=== PATIENT | female | born 1995 | race Caucasian/White ===

== ENCOUNTER 2020-03-13 19:11 | Emergency (ER) | payer MEDICAID, SELFPAY ==
[2020-03-13 19:48] VITALS: BP 143/76; PULSE 83; RESP 16; TEMP 36.8; O2SAT 100; BMI 24.9
--- NOTE | 2020-03-13 20:13 | ED.ABDPAIN ---
HPI - Abdominal Pain General Chief Complaint: Abdominal Pain Stated Complaint: Abdominal Pain Time Seen by Provider: 03/13/20 19:52 Source: patient Mode of arrival: ambulatory History of Present Illness HPI narrative: 24-year-old female with a PMHx of anemia, , presenting to ED complaining of intermittent nonradiating lower abdominal pain x a few days. Patient tested positive for COVID-19 about 1 month ago, has been in quarantine since due to testing positive again after 14 days of quarantine. Reports lower abdominal pain during COVID like symptoms, which improved, but are still slightly present, and wants to get checked out. Denies radiation of pain. Denies nausea/vomiting, diarrhea, fever, chills, dysuria/hematuria, vaginal bleeding/discharge MD elicited complaint: abdominal pain Related Data Allergies Allergy/AdvReac Type Severity Reaction Status Date / Time No Known Allergies Allergy Unverified 01/15/20 16:27 [No Known Allergies*] Review of Systems Review of Systems Constitutional: No Weight loss, No Fever, No Chills ENT/Mouth: No Ear Pain, No Nasal Congestion, No Sinus Pain, No Hoarseness, No sore throat, No Rhinorrhea, No Swallowing Difficulty Cardiovascular: No Chest Pain, No SOB Respiratory: No Cough, No Sputum, No Wheezing Gastrointestinal: No Nausea, No Vomiting, No Diarrhea, No Constipation, + Abdominal pain Genitourinary: No Dysuria, No Urinary Frequency, No Hematuria, No Urinary Incontinence, No Flank Pain, no vaginal bleeding or discharge Musculoskeletal: No joint pain, No Myalgias, No Joint Swelling Skin: No Skin Lesions, No rash Yes all other systems are reviewed and are negative Physical Exam Vital Signs: Vital Signs: Last Vital Signs Temp 97.4 F 03/13/20 21:14 Pulse 85 03/13/20 21:14 Resp 20 03/13/20 21:14 BP 138/83 03/13/20 21:14 Pulse Ox 100 03/13/20 21:14 Body Mass Index 24.9 Const: General: cooperative and healthy appearing Orientation/consciousness: patient oriented x3 Limitations: no limitations HENMT: Head: Yes normal to inspection Ears: hearing grossly normal bilaterally General nose exam: Normal external nose present Face and sinus: Yes normal facial exam Eyes: General: appearance normal, both eyes and all related structures EOM: EOMs intact bilaterally Neck: Neck: Yes normal visual inspection Resp: Effort & Inspection: normal respiratory effort and no stridor GI: Inspection: Yes normal to inspection Palpation (GI): Soft to palpation, nontender, no guarding and not rigid : General: Yes no CVA tenderness Back/Spine/Pelvis: Back: no CVA tenderness Skin: Rashes: no rashes Wounds: no wounds Neuro: General: patient oriented x3 Gait exam (Neuro): Normal gait present Extrem: General: Yes normal to inspection Course Course Course Narrative: --2150--labs and UA unremarkable Results discussed with patient including worrisome signs and symptoms and strict return precautions. She verbalized understanding and feels safe for discharge home MDM - Abdominal Pain MDM Narrative Medical decision making narrative: 24-year-old female with a PMHx of anemia, , presenting to ED complaining of intermittent nonradiating lower abdominal pain x a few days. On exam VSS, NAD/well-appearing, abdomen soft/nontender, no CVAT. Concern for gastroenteritis vs ? or residual COVID-19 symptoms. Low concern for appendicitis/diverticulitis, or pancreatitis without tenderness on exam. Low concern for ovarian torsion/cyst. Rule UTI Plan: Labs, UA, urine , reassess Lab Data Result diagrams: 03/13/20 20:51 03/13/20 20:51 Labs: Lab Results 03/13/20 03/13/20 03/13/20 Range/Units 20:51 20:51 20:51 WBC 6.6 (4.8-10.8) X10*3/uL RBC 4.45 (4.20-5.50) X10*6/uL Hgb 13.2 (12.0-16.0) g/dl Hct 39.5 (37-47) % MCV 88.8 (80-98) fL MCH 29.7 (27.0-33.0) pg MCHC 33.4 (31.0-35.0) g/dl RDW 12.1 (11.0-16.0) % Plt Count 201 (160-400) X10*3/uL MPV 12.0 (9.4-12.3) fL Immature Gran % (Auto) 0.3 (0.0-0.4) % Neut % (Auto) 66.8 (45-73) % Lymph % (Auto) 23.4 (20-40) % [place] % (Auto) 7.9 (2-11) % Eos % (Auto) 1.1 (0-4) % Baso % (Auto) 0.5 (0-2) % Lymph # (Auto) 1.5 (1.2-4.9) X10*3/uL [place] # (Auto) 0.5 (0.1-1.2) X10*3/uL Eos # (Auto) 0.1 (0.0-0.4) X10*3/uL Baso # (Auto) 0.0 (0.0-0.2) X10*3/uL Abs Immat Gran (auto) 0.02 (0.00-0.03) X10*3/uL Absolute Neuts (auto) 4.4 (2.0-8.3) X10*3/uL Absolute Nucleated RBC 0.000 (0.0-0.012) X10*3/uL Nucleated RBC % (auto) 0.0 (0.0-0.2) /100WBC Hold Blue Top SEE NOTE Sodium 142 (135-145) mmol/L Potassium 3.8 (3.3-5.1) mmol/l Chloride 107 (96-108) mmol/L Carbon Dioxide 26 (22-29) mmol/L Anion Gap 13 (12-20) BUN 10 (9-16) mg/dL Creatinine 0.73 (0.5-1.4) mg/dL Estim Creat Clear Calc 97.0 Estimated GFR > 60 Random Glucose 95 (60-115) mg/dL Calcium 9.1 (8.4-10.2) mg/dL Magnesium 1.9 (1.6-2.6) mg/dL Total Bilirubin 1.1 H (0.0-1.0) mg/dL Direct Bilirubin 0.4 (0.0-0.5) mg/dL AST 19 (5-31) U/L ALT 14 (0-31) U/L Alkaline Phosphatase 101 (39-117) U/L Total Protein 7.9 (6.5-8.0) g/dL Albumin 4.8 (3.5-5.0) g/dL Lipase 13 (8-78) U/L Urine Color Urine Appearance Urine pH (5.0-8.0) Ur Specific [place] (1.005-1.025) Urine Protein (NEG-TRACE) MG/DL Urine Glucose (UA) (NEG) MG/DL Urine Ketones (NEG) MG/DL Urine Blood (NEG) Urine Nitrite (NEG) Ur Leukocyte Esterase (NEG) Urine Test (NEGATIVE) 03/13/20 Range/Units 21:20 WBC (4.8-10.8) X10*3/uL RBC (4.20-5.50) X10*6/uL Hgb (12.0-16.0) g/dl Hct (37-47) % MCV (80-98) fL MCH (27.0-33.0) pg MCHC (31.0-35.0) g/dl RDW (11.0-16.0) % Plt Count (160-400) X10*3/uL MPV (9.4-12.3) fL Immature Gran % (Auto) (0.0-0.4) % Neut % (Auto) (45-73) % Lymph % (Auto) (20-40) % [place] % (Auto) (2-11) % Eos % (Auto) (0-4) % Baso % (Auto) (0-2) % Lymph # (Auto) (1.2-4.9) X10*3/uL [place] # (Auto) (0.1-1.2) X10*3/uL Eos # (Auto) (0.0-0.4) X10*3/uL Baso # (Auto) (0.0-0.2) X10*3/uL Abs Immat Gran (auto) (0.00-0.03) X10*3/uL Absolute Neuts (auto) (2.0-8.3) X10*3/uL Absolute Nucleated RBC (0.0-0.012) X10*3/uL Nucleated RBC % (auto) (0.0-0.2) /100WBC Hold Blue Top Sodium (135-145) mmol/L Potassium (3.3-5.1) mmol/l Chloride (96-108) mmol/L Carbon Dioxide (22-29) mmol/L Anion Gap (12-20) BUN (9-16) mg/dL Creatinine (0.5-1.4) mg/dL Estim Creat Clear Calc Estimated GFR Random Glucose (60-115) mg/dL Calcium (8.4-10.2) mg/dL Magnesium (1.6-2.6) mg/dL Total Bilirubin (0.0-1.0) mg/dL Direct Bilirubin (0.0-0.5) mg/dL AST (5-31) U/L ALT (0-31) U/L Alkaline Phosphatase (39-117) U/L Total Protein (6.5-8.0) g/dL Albumin (3.5-5.0) g/dL Lipase (8-78) U/L Urine Color YELLOW Urine Appearance CLEAR Urine pH 6.0 (5.0-8.0) Ur Specific [place] 1.025 (1.005-1.025) Urine Protein NEG (NEG-TRACE) MG/DL Urine Glucose (UA) NEG (NEG) MG/DL Urine Ketones NEG (NEG) MG/DL Urine Blood 1+ H (NEG) Urine Nitrite NEG (NEG) Ur Leukocyte Esterase NEG (NEG) Urine Test NEGATIVE (NEGATIVE) Discharge Plan Discharge Clinical Impression: Abdominal pain Patient Disposition: Home, Self-Care Instructions: Abdominal Pain (ED) Additional Instructions: Your blood work and urine were reassuring today in the ED Make sure stay hydrated at home Follow-up with her doctor If your pain persists or worsens, becomes more,, you have fever, vaginal bleeding or discharge, urinary symptoms, or nausea or vomiting return to the ED Referrals: Physician,Unknown [Primary Care Provider] - 2 days (Your PCP) [facility] Past Medical History Attestation statement: The following information was validated with the patient. Medical History (Updated 03/13/20 @ 20:19 by LUIS Enriquez) Anemia Social History Social History Advance Directives: No Advance Directives Information Provided: No
[2020-03-13 20:56] LABS: MANUAL DIFF FLAG NO
[2020-03-13 20:59] LABS: Basophils Percent Auto 0.5 % (0-2); Eosinophils Absolute Auto 0.1 X10*3/uL (0.0-0.4); Eosinophils Percent Auto 1.1 % (0-4); Hematocrit 39.5 % (37-47); Hemoglobin 13.2 g/dl (12.0-16.0); Imm Gran Abs Auto 0.02 X10*3/uL (0.00-0.03); Imm Gran Pct Auto 0.3 % (0.0-0.4); Lymphocytes Absolute Auto 1.5 X10*3/uL (1.2-4.9); Lymphocytes Percent Auto 23.4 % (20-40); Mean Corpuscular HGB Conc 33.4 g/dl (31.0-35.0); Mean Corpuscular Hemoglobin 29.7 pg (27.0-33.0); Mean Corpuscular Volume 88.8 fL (80-98); Monocytes Absolute Auto 0.5 X10*3/uL (0.1-1.2); Monocytes Percent Auto 7.9 % (2-11); Neutrophils Absolute Auto 4.4 X10*3/uL (2.0-8.3); Neutrophils Percent Auto 66.8 % (45-73); Platelet Count 201 X10*3/uL (160-400); Red Blood Count 4.45 X10*6/uL (4.20-5.50); Red Cell Distribution Width 12.1 % (11.0-16.0); White Blood Count 6.6 X10*3/uL (4.8-10.8)
[2020-03-13 21:14] VITALS: BP 138/83; PULSE 85; RESP 20; TEMP 36.3; O2SAT 100
[2020-03-13 21:29] LABS: Alanine Aminotransferase 14 U/L (0-31); Albumin Level 4.8 g/dL (3.5-5.0); Alkaline Phosphatase 101 U/L (39-117); Anion Gap 13 (12-20); Aspartate Amino Transferase 19 U/L (5-31); Bilirubin Direct 0.4 mg/dL (0.0-0.5); Bilirubin Total 1.1 mg/dL (0.0-1.0); Blood Urea Nitrogen 10 mg/dL (9-16); Calcium 9.1 mg/dL (8.4-10.2); Carbon Dioxide 26 mmol/L (22-29); Chloride 107 mmol/L (96-108); Estimated Glomerular Filt Rate > 60; Glucose Random 95 mg/dL (60-115); Lipase 13 U/L (8-78); Magnesium 1.9 mg/dL (1.6-2.6); Potassium 3.8 mmol/l (3.3-5.1); Sodium 142 mmol/L (135-145); Total Protein 7.9 g/dL (6.5-8.0)
[2020-03-13 21:34] LABS: Glucose Urine UA NEG (NEG); Leukocyte Esterase Urine NEG (NEG); Nitrite Urine NEG (NEG); Specific Gravity - Urine 1.025 (1.005-1.025); Urine Blood 1+ (NEG); Urine Ketones NEG (NEG); Urine Protein NEG (NEG-TRACE)
[2020-03-13 21:37] LABS: Appearance Urine CLEAR; Color Urine YELLOW
[2020-03-13 21:39] LABS: UPreg QC Valid YES; Urine Pregnancy NEGATIVE (NEGATIVE)
[2020-03-13 22:07] LABS: Bacteria Urine TRACE /LPF; RBC Urine 0-2 /HPF (0); Squamous Epithelial Cell Urine TRACE /LPF; WBC Urine 0 /HPF (0-4)
== END 2020-03-13 22:25 | disposition home or self-care (01) ==
PROVIDERS: Physician Assistant; Emergency Provider Student in an Organized Health Care Education/Training Program
DX: R10.9 Unspecified abdominal pain (principal); Z20.828 Contact with and (suspected) exposure to other viral communicable diseases; Z86.19 Personal history of other infectious and parasitic diseases
CPT/HCPCS: 36415; 80048; 80076; 81001; 81025; 83690; 83735; 85025; 99283; 99284

== ENCOUNTER 2020-05-04 17:26 | Emergency (ER) | payer MEDICAID, SELFPAY ==
[2020-05-04 17:35] VITALS: BP 148/76; PULSE 80; RESP 18; TEMP 37.1; O2SAT 98; BMI 24.9
[2020-05-04 18:45] LABS: Glucose Urine UA NEG (NEG); Leukocyte Esterase Urine NEG (NEG); Nitrite Urine NEG (NEG); Specific Gravity - Urine >= 1.030 (1.005-1.025); Urine Blood 1+ (NEG); Urine Ketones NEG (NEG); Urine Protein NEG (NEG-TRACE)
[2020-05-04 18:51] LABS: Appearance Urine CLEAR; Color Urine YELLOW
[2020-05-04 18:52] LABS: UPreg QC Valid YES; Urine Pregnancy POSITIVE (NEGATIVE)
[2020-05-04 18:58] LABS: Squamous Epithelial Cell Urine 1+ /LPF
[2020-05-04 18:59] LABS: Bacteria Urine 2+ /LPF; Mucus Urine 2+ /LPF
[2020-05-04 20:00] VITALS: BP 146/78; PULSE 80; RESP 18; O2SAT 98
--- NOTE | 2020-05-04 21:05 | US_ITS ---
EXAMINATION: ULTRASOUND PELVIC, COMPLETE CLINICAL INFORMATION: Vaginal spotting. . Beta-hCG 372 on 05/04/2020 COMPARISON: None. TECHNIQUE: Transvaginal: Used to better visualize pelvic structures Transabdominal: Not adequate for visualization. Spectral Doppler and color Doppler exam was utilized. LMP: 03/28/2020. Gestational age by LMP is 5 weeks 2 days. JOB 01/02/2021 FINDINGS: UTERUS: In the fundus of the uterus within the endometrial cavity is a small cystic area measuring 0.33 cm. This is likely a gestational sac. This correlates with dating of 4 weeks 6 days. No pole or yolk sac. Endometrial thickness is 2.2 cm. ADNEXA: Ovarian vascularity:Doppler demonstrates both arterial and venous vascular flow in the right and left ovary. No evidence of ovarian torsion. Right Ovary: 4 x 2.3 x 3.2 cm. Corpus luteum cyst in the right ovary measures 2.1 x 1.6 x 1.4 cm Left Ovary: 2 x 1.9 x 1.7 cm Cul-de-sac: No Fluid US/US OB transvaginal IMPRESSION: 1. Small intrauterine gestational sac measuring 0.33 cm. This is consistent with gestational age of 4 weeks 6 days, JOB 01/02/2021. Consider follow-up pelvic ultrasound in 2-3 weeks. 2. Corpus luteum cyst in the right ovary measuring 2.1 cm.
--- NOTE | 2020-05-04 21:05 | US_ITS ---
EXAMINATION: ULTRASOUND PELVIC, COMPLETE CLINICAL INFORMATION: Vaginal spotting. . Beta-hCG 372 on 05/04/2020 COMPARISON: None. TECHNIQUE: Transvaginal: Used to better visualize pelvic structures Transabdominal: Not adequate for visualization. Spectral Doppler and color Doppler exam was utilized. LMP: 03/28/2020. Gestational age by LMP is 5 weeks 2 days. JOB 01/02/2021 FINDINGS: UTERUS: In the fundus of the uterus within the endometrial cavity is a small cystic area measuring 0.33 cm. This is likely a gestational sac. This correlates with dating of 4 weeks 6 days. No pole or yolk sac. Endometrial thickness is 2.2 cm. ADNEXA: Ovarian vascularity:Doppler demonstrates both arterial and venous vascular flow in the right and left ovary. No evidence of ovarian torsion. Right Ovary: 4 x 2.3 x 3.2 cm. Corpus luteum cyst in the right ovary measures 2.1 x 1.6 x 1.4 cm Left Ovary: 2 x 1.9 x 1.7 cm Cul-de-sac: No Fluid US/US OB <= 14 weeks fetus IMPRESSION: 1. Small intrauterine gestational sac measuring 0.33 cm. This is consistent with gestational age of 4 weeks 6 days, JOB 01/02/2021. Consider follow-up pelvic ultrasound in 2-3 weeks. 2. Corpus luteum cyst in the right ovary measuring 2.1 cm.
--- NOTE | 2020-05-04 21:08 | ED_ITS ---
HPI - General Chief complaint: Vaginal Bleeding Stated complaint: positive with pelvic pain Time Seen by Provider: 05/04/20 21:05 Source: patient Mode of arrival: ambulatory History of Present Illness HPI Narrative: This is a 24-year-old female with LMP 03/28/2020 who states that she began having some vaginal spotting for 3 days that she thought was due to menstrual but noticed that her breasts were tender so took a home test which was positive. She states that she is having some left-sided pelvic cramping that is not associated with fevers, chills, diarrhea, nausea, vomiting, urinary pain/burning/frequency. Related Data Allergies Allergy/AdvReac Type Severity Reaction Status Date / Time No Known Allergies Allergy Verified 05/04/20 17:35 [No Known Allergies*] Review of Systems Review of Systems: Pertinent positives and negatives as stated in the HPI 10 point review of systems is otherwise negative. PMFSH Past Medical History Source: nursing notes reviewed Medical History Anemia Social History Social History Alcohol intake: never Smoking Status: Never smoker Use of substances other than those prescribed or required for medical reasons: No Advance Directives: No Advance Directives Information Provided: No Physical Exam Vital Signs: Vital Signs: Last Vital Signs Temp 98.7 F 05/04/20 17:35 Pulse 80 05/04/20 17:35 Resp 18 05/04/20 17:35 BP 148/76 H 05/04/20 17:35 Pulse Ox 98 05/04/20 17:35 Body Mass Index 24.9 VITAL SIGNS: Reviewed. GENERAL: Well developed, well nourished, in no acute distress. HEAD: Normocephalic/atraumatic, EYES: PERRLA, EOMI intact without pain, no nystagmus/pallor/icterus noted EARS: Ext canals without abnormality, TMs non-bulging and non-erythematous NOSE: Nares patent bilateral OROPHARYNX: no oral lesions noted, posterior pharynx clear and non-erythematous without noted tonsillar enlargement/erythema/exudates NECK: Supple, no adenopathy LUNGS: Normal breath sounds. No adventitious sounds or accessory muscle use. SpO2<98> CARDIOVASCULAR: Regular rate and rhythm without noted murmurs, no JVD or lower extremity edema. ABDOMEN: Soft, mild tenderness to palpation the right lower quadrant without rebound, non-distended with bowel sounds. No rigidity. No guarding. No palpable masses or hernias noted NEUROLOGIC: Alert and oriented x 4. Course Course Course Narrative: This is a 24-year-old female with history and clinical presentation consistent with most likely benign 1st trimester spotting, but will evaluate for possibility of ectopic or possible UTI, but doubt appendicitis On review of all investigations patient has a positive urine test with identification of an IUP at approximate 4 weeks 6 days. Otherwise, there are no acute findings on laboratory investigation. All results and findings were discussed with the patient at bedside and she was informed that currently she has an IUP and that although this is no guarantee she would need to continue with follow-up with her window machine operator for repeat beta-hCG and imaging studies as indicated. MDM - OB/Uterine Contractions Lab Data Result diagrams: 05/04/20 21:23 05/04/20 21:23 Labs: Lab Results 05/04/20 05/04/20 05/04/20 Range/Units 17:46 21:23 21:23 WBC 7.2 (4.8-10.8) X10*3/uL RBC 4.40 (4.20-5.50) X10*6/uL Hgb 13.2 (12.0-16.0) g/dl Hct 38.5 (37-47) % MCV 87.5 (80-98) fL MCH 30.0 (27.0-33.0) pg MCHC 34.3 (31.0-35.0) g/dl RDW 11.9 (11.0-16.0) % Plt Count 183 (160-400) X10*3/uL MPV 12.4 H (9.4-12.3) fL Immature Gran % (Auto) 0.3 (0.0-0.4) % Neut % (Auto) 66.1 (45-73) % Lymph % (Auto) 24.7 (20-40) % [place] % (Auto) 7.8 (2-11) % Eos % (Auto) 0.8 (0-4) % Baso % (Auto) 0.3 (0-2) % Lymph # (Auto) 1.8 (1.2-4.9) X10*3/uL [place] # (Auto) 0.6 (0.1-1.2) X10*3/uL Eos # (Auto) 0.1 (0.0-0.4) X10*3/uL Baso # (Auto) 0.0 (0.0-0.2) X10*3/uL Abs Immat Gran (auto) 0.02 (0.00-0.03) X10*3/uL Absolute Neuts (auto) 4.8 (2.0-8.3) X10*3/uL Absolute Nucleated RBC 0.000 (0.0-0.012) X10*3/uL Nucleated RBC % (auto) 0.0 (0.0-0.2) /100WBC Sodium 137 (135-145) mmol/L Potassium 3.8 (3.3-5.1) mmol/l Chloride 106 (96-108) mmol/L Carbon Dioxide 22 (22-29) mmol/L Anion Gap 13 (12-20) BUN 7 L (9-16) mg/dL Creatinine 0.67 (0.5-1.4) mg/dL Estim Creat Clear Calc 105.7 Estimated GFR > 60 Random Glucose 84 (60-115) mg/dL Calcium 8.5 D (8.4-10.2) mg/dL Total Bilirubin 1.3 H (0.0-1.0) mg/dL AST 14 (5-31) U/L ALT 12 (0-31) U/L Alkaline Phosphatase 94 (39-117) U/L Total Protein 7.4 (6.5-8.0) g/dL Albumin 4.5 (3.5-5.0) g/dL Beta HCG, Quant 372 mIU/mL Urine Color YELLOW Urine Appearance CLEAR Urine pH 6.0 (5.0-8.0) Ur Specific [place] >= 1.030 H (1.005-1.025) Urine Protein NEG (NEG-TRACE) MG/DL Urine Glucose (UA) NEG (NEG) MG/DL Urine Ketones NEG (NEG) MG/DL Urine Blood 1+ H (NEG) Urine Nitrite NEG (NEG) Ur Leukocyte Esterase NEG (NEG) Urine RBC 1-4 (0) /HPF Urine WBC 1-4 (0-4) /HPF Ur Squamous Epith Cells 1+ /LPF Urine Bacteria 2+ /LPF Urine Mucus 2+ /LPF Urine Test POSITIVE H (NEGATIVE) Discharge Plan Discharge Clinical Impression: Intrauterine , Threatened Patient Disposition: Home, Self-Care Instructions: (ED), Threatened Miscarriage (ED) Additional Instructions: Follow-up with your window machine operator. Please return to the emergency department should you develop any worsening symptoms. You may take [id number] Tylenol as needed for any discomfort but avoid ibuprofen/Motrin. Referrals: Physician,Unknown [Primary Care Provider] - 2 days
[2020-05-04 21:31] LABS: Basophils Percent Auto 0.3 % (0-2); Eosinophils Absolute Auto 0.1 X10*3/uL (0.0-0.4); Eosinophils Percent Auto 0.8 % (0-4); Hematocrit 38.5 % (37-47); Hemoglobin 13.2 g/dl (12.0-16.0); Imm Gran Abs Auto 0.02 X10*3/uL (0.00-0.03); Imm Gran Pct Auto 0.3 % (0.0-0.4); Lymphocytes Absolute Auto 1.8 X10*3/uL (1.2-4.9); Lymphocytes Percent Auto 24.7 % (20-40); Mean Corpuscular HGB Conc 34.3 g/dl (31.0-35.0); Mean Corpuscular Volume 87.5 fL (80-98); Mean Platelet Volume 12.4 fL (9.4-12.3); Monocytes Absolute Auto 0.6 X10*3/uL (0.1-1.2); Monocytes Percent Auto 7.8 % (2-11); Neutrophils Absolute Auto 4.8 X10*3/uL (2.0-8.3); Neutrophils Percent Auto 66.1 % (45-73); Platelet Count 183 X10*3/uL (160-400); Red Cell Distribution Width 11.9 % (11.0-16.0); White Blood Count 7.2 X10*3/uL (4.8-10.8)
[2020-05-04 21:32] LABS: MANUAL DIFF FLAG NO
--- NOTE | 2020-05-04 21:33 | PC.NURSE ---
per okay to hold off on doppler due to early .
--- NOTE | 2020-05-04 21:45 | PC.NURSE ---
HR ON HOLD DUE TO PATIENT BEING APPROXIMATLY 5 WEEKS. STATES IT WOULD BE CHALLENGING TO FIND.
[2020-05-04 21:59] LABS: Alanine Aminotransferase 12 U/L (0-31); Albumin Level 4.5 g/dL (3.5-5.0); Alkaline Phosphatase 94 U/L (39-117); Anion Gap 13 (12-20); Aspartate Amino Transferase 14 U/L (5-31); Bilirubin Total 1.3 mg/dL (0.0-1.0); Blood Urea Nitrogen 7 mg/dL (9-16); Calcium 8.5 mg/dL (8.4-10.2); Carbon Dioxide 22 mmol/L (22-29); Chloride 106 mmol/L (96-108); Creatinine Clr Calc Pharmacy 105.7; Estimated Glomerular Filt Rate > 60; Glucose Random 84 mg/dL (60-115); Potassium 3.8 mmol/l (3.3-5.1); Sodium 137 mmol/L (135-145); Total Protein 7.4 g/dL (6.5-8.0)
[2020-05-04 22:05] LABS: HCG Quantitative 372 mIU/mL
== END 2020-05-04 23:20 | disposition home or self-care (01) ==
PROVIDERS: Emergency Provider Student in an Organized Health Care Education/Training Program
DX: O20.0 Threatened abortion (principal); Z3A.01 Less than 8 weeks gestation of pregnancy
CPT/HCPCS: 36415; 76801; 76817; 80053; 81001; 81025; 84702; 85025; 99284

== ENCOUNTER → 2020-05-19 14:00 | Outpatient (BNVA) | payer MEDICAID, SELFPAY | PROVIDERS: Visit Provider Advanced Practice Midwife | DX: Z3A.01 Less than 8 weeks gestation of pregnancy (principal) | CPT/HCPCS: 99212 ==

== ENCOUNTER 2020-05-21 08:28 | Outpatient (REF) | payer MEDICAID, SELFPAY ==
--- NOTE | 2020-05-21 08:32 | US_ITS ---
EXAMINATION: US OB LESS THAN 14 WEEKS CLINICAL INFORMATION: Questionable viability and unsure dates COMPARISON: Ultrasound OB 05/04/2020 TECHNIQUE: Routine grayscale imaging of pelvis was performed. FINDINGS: There is a single live intrauterine fetus with a crown-rump length of 0.79 cm corresponding with 6 weeks and 6 days. There is visualization of distal sac, yolk sac and heart beat. The heart rate is 130 bpm. The right ovary measures 3.5 x 2.5 x 2.8 seen. There is a small anechoic corpus luteal cyst measuring 1.9 x 1.9 x 2.0. The left ovary measures 2.8 x 1.4 x 2.0 cm. US/US OB <= 14 weeks fetus IMPRESSION: 1. Single live intrauterine fetus with ultrasound age of 6 weeks and 6 days and JOB of 01/08/2021. 2. Small corpus luteal cyst right ovary. 3. The left ovary is unremarkable.
== END 2020-05-21 08:29 | disposition home or self-care (01) ==
LOC: HO.US 08:28
PROVIDERS: Visit Provider Obstetrics & Gynecology
DX: O36.80X0 Pregnancy with inconclusive fetal viability, not applicable or unspecified (principal); Z3A.01 Less than 8 weeks gestation of pregnancy
CPT/HCPCS: 76801

== ENCOUNTER → 2020-06-02 14:22 | Outpatient (BNVA) | payer MEDICAID, SELFPAY | PROVIDERS: Visit Provider Advanced Practice Midwife | DX: Z13.89 Encounter for screening for other disorder (principal) | CPT/HCPCS: 99212 ==

== ENCOUNTER 2020-06-11 14:09 | Outpatient (REF) | payer MEDICAID, SELFPAY ==
[2020-06-11 15:17] LABS: Hematocrit 36.5 % (37-47); MANUAL DIFF FLAG SCAN; Red Cell Distribution Width 12.6 % (11.0-16.0); SCAN SMEAR FLAG 1
[2020-06-11 15:19] LABS: Basophils Percent Auto 0.3 % (0-2); Eosinophils Absolute Auto 0.1 X10*3/uL (0.0-0.4); Eosinophils Percent Auto 0.9 % (0-4); Hemoglobin 12.5 g/dl (12.0-16.0); Imm Gran Abs Auto 0.04 X10*3/uL (0.00-0.03); Imm Gran Pct Auto 0.6 % (0.0-0.4); Lymphocytes Absolute Auto 1.3 X10*3/uL (1.2-4.9); Lymphocytes Percent Auto 19.9 % (20-40); Mean Corpuscular HGB Conc 34.2 g/dl (31.0-35.0); Mean Corpuscular Hemoglobin 30.3 pg (27.0-33.0); Mean Corpuscular Volume 88.4 fL (80-98); Mean Platelet Volume 12.6 fL (9.4-12.3); Monocytes Absolute Auto 0.4 X10*3/uL (0.1-1.2); Monocytes Percent Auto 6.4 % (2-11); Neutrophils Absolute Auto 4.7 X10*3/uL (2.0-8.3); Neutrophils Percent Auto 71.9 % (45-73); Platelet Count 156 X10*3/uL (160-400); Red Blood Count 4.13 X10*6/uL (4.20-5.50); White Blood Count 6.6 X10*3/uL (4.8-10.8)
[2020-06-11 15:20] LABS: PLT ABN DIST 1
[2020-06-11 15:40] LABS: SLIDE REVIEW VERIFIED
[2020-06-11 15:54] LABS: Amphetamine Screen Urine Not Detected (Not Detect); Barbiturates, Urine Not Detected (Not Detect); Benzodiazepines Screen Urine Not Detected (Not Detect); Cannabinoid Screen Urine Not Detected (Not Detect); Cocaine Screen Urine Not Detected (Not Detect); Opiate Screen Urine Not Detected (Not Detect); Phencyclidine Screen Urine Not Detected (Not Detect)
[2020-06-11 15:59] LABS: Syphilis Screen Nonreactive (Nonreactive)
[2020-06-12 05:37] LABS: Rubella IgG Antibody 2.21 Index
[2020-06-14 07:57] LABS: HIV AB/AG Nonreactive (Nonreactive); HIV Num 1 0.08 S/CO (0.00-0.99); ~Hepatitis C Antibody Nonreactive (Nonreactive)
[2020-06-14 08:28] LABS: HBsAGNum1 0.14 S/CO (0.00-0.99); Hepatitis B Surface Antigen Negative (Negative)
== END 2020-06-11 14:10 | disposition home or self-care (01) ==
LOC: HO.LAB 14:09
PROVIDERS: PCP Family Medicine; Visit Provider Obstetrics & Gynecology
DX: Z34.90 Encounter for supervision of normal pregnancy, unspecified, unspecified trimester (principal); Z3A.00 Weeks of gestation of pregnancy not specified
CPT/HCPCS: 80307; 85025; 86762; 86780; 86787; 86803; 86850; 86900; 86901; 87086; 87340; 87389

== ENCOUNTER 2020-06-22 14:59 | Outpatient (REF) | payer MEDICAID, SELFPAY ==
[2020-06-23 09:21] LABS: BV Int Neg Control Negative (Negative); BV Int Pos Control Positive (Positive)
[2020-06-23 14:52] LABS: C. trachomatis RNA TMA NOT DETECTED (NOT DETECTED); N. gonorrhoeae RNA TMA NOT DETECTED (NOT DETECTED)
== END 2020-06-22 15:00 | disposition home or self-care (01) ==
LOC: HO.LAB 14:59
PROVIDERS: PCP Family Medicine; Visit Provider Advanced Practice Midwife
DX: O99.011 Anemia complicating pregnancy, first trimester (principal); D64.9 Anemia, unspecified; O34.219 Maternal care for unspecified type scar from previous cesarean delivery; Z3A.11 11 weeks gestation of pregnancy
CPT/HCPCS: 36415; 81003; 87480; 87491; 87510; 87591; 87660; 99212

== ENCOUNTER 2020-06-22 17:10 | Outpatient (REF) | payer MEDICAID, SELFPAY ==
--- NOTE | ~2020-06-22 | US_ITS ---
EXAMINATION: US OBSTETRICAL ULTRASOUND CLINICAL INFORMATION: Encounter for supervision of normal . COMPARISON: 05/21/2020 and 05/04/2020 obstetrical ultrasound studies. LMP: 03/28/2020. Gestational age by maternal dates is 12 weeks, 2 days. Estimated date of delivery by maternal dates is 01/02/2021. TECHNIQUE: Multiple 2-D grayscale and Doppler ultrasound images of the pelvis were obtained for obstetrical examination. FINDINGS: There is a single intrauterine gestational sac with visible yolk sac, embryo/fetus, and cardiac activity. There is no significant subchorionic hemorrhage or hematoma. HR: 172 beats per minute. CRL (crown rump length): 4.85 cm, 11 weeks 5 days. JOB (estimated date of delivery): 01/06/2021 +/- 4 days. MATERNAL ADNEXA: The right maternal ovary measures 3.6 x 1.7 x 2.9 cm. The left maternal ovary was not visualized. No left adnexal abnormality. There is no significant maternal adnexal mass. No maternal pelvic ascites. US/US OB <= 14 weeks fetus IMPRESSION: 1. Single intrauterine gestation with ultrasound gestational age of 11 weeks, 5 days +/- 4 days. 2. Estimated date of delivery is 01/06/2021 +/- 4 days. 3. No maternal adnexal mass or pelvic ascites.
== END 2020-06-22 17:11 | disposition home or self-care (01) ==
LOC: HO.US 17:10
PROVIDERS: Visit Provider Advanced Practice Midwife
DX: O36.8310 Maternal care for abnormalities of the fetal heart rate or rhythm, first trimester, not applicable or unspecified (principal); Z3A.12 12 weeks gestation of pregnancy
CPT/HCPCS: 76801

== ENCOUNTER 2020-07-15 09:35 | Outpatient (REF) | payer MEDICAID, SELFPAY ==
[2020-07-16 09:25] LABS: BV Int Neg Control Negative (Negative); BV Int Pos Control Positive (Positive)
== END 2020-07-15 09:36 | disposition home or self-care (01) ==
LOC: HO.LAB 09:35
PROVIDERS: PCP Family Medicine; Visit Provider Advanced Practice Midwife
DX: O26.892 Other specified pregnancy related conditions, second trimester (principal); N76.0 Acute vaginitis; O99.012 Anemia complicating pregnancy, second trimester; D64.9 Anemia, unspecified; O34.219 Maternal care for unspecified type scar from previous cesarean delivery; Z3A.14 14 weeks gestation of pregnancy
CPT/HCPCS: 81003; 87480; 87510; 87660; 99212

== ENCOUNTER → 2020-07-20 14:44 | Outpatient (BNVA) | payer MEDICAID, SELFPAY | PROVIDERS: PCP Family Medicine; Visit Provider Obstetrics & Gynecology | DX: Z3A.15 15 weeks gestation of pregnancy (principal) | CPT/HCPCS: 99212 ==

== ENCOUNTER 2020-08-13 10:55 | Outpatient (REF) | payer MEDICAID, SELFPAY ==
--- NOTE | ~2020-08-13 | US_ITS ---
EXAMINATION: US OBSTETRICAL CLINICAL INFORMATION: 25-year-old at 18.6 days of gestation Suspected anomaly COMPARISON: 06/22/2020 TECHNIQUE: Real-time transabdominal ultrasound was performed using C1-5 megahertz transducer. FINDINGS: A single, active, fetus is seen in vertex presentation. The placenta is posterior without previa, and the amniotic fluid volume is wnl. MEASUREMENTS: 1. Biparietal Diameter: 4.3 cm; 19.0 wks 2. Occipital Frontal Diameter: 5.3 cm 3. Head Circumference: 15.8 cm; 18.5 wks 4. Abdominal Circumference: 12.9 cm; 18.3 wks 5. Femur Length: 3.1 cm; 19.4 wks 6. Humerus Length: 2.8 cm; 19.0 wks 7. Tibia Length: 2.6 cm; 19.1 wks 8. Ulna Length: 2.7 cm; 20.1 wks 9. Lateral ventricle: 0.58 cm 10. Cerebellum: 1.87 cm; 19.3 wks 11. Cisterna Magna: 0.3 cm 12. Nuchal Fold: 2.8 mm 13. Heart Rate: 140 beats per minute Rt ovary: normal Lt ovary: normal Cervical length 3.8 cm on T/A. GESTATIONAL AGE: 1. Established GA: 18.6 wks 2. GA from [facility]: 19.0 wks ESTIMATED DATE OF DELIVERY: 1. Established JOB: 01/08/2021 2. JOB from [facility]: 01/07/2021 ANATOMY: The visualized anatomy includes but not limited to: 1. Cranium: Normal 2. Intracranial anatomy: cavum septum pellucidi, lateral ventricles, choroid plexus, cerebellum, posterior fossa, third and fourth ventricles. 3. face: orbits, lip/palate, profile, nasal bone 4. Heart: four-chamber view of the heart, ventricular septum, foramen ovale, pulmonary vein, left and right outflow tracts, three-vessel view, 3 vessel trachea view, aortic and ductal arches, situs.. 5. Diaphragm: Normal 6. Abdominal wall: Normal 7. Cord Insertion: Normal 8. Spine: Cervical, thoracic, lumbar, sacral. 9. Stomach: Normal size and shape 10. Right Kidney: Pyelectasis, renal pelvis measured 5 mm 11. Left Kidney: Pyelectasis, 4 mm 12. 3 vessel cord: Normal 13. Upper extremity: Open hands, fifth digit. 14. Lower extremity: Tibia, fibula, bilateral feet. 15. Bladder: Normal 16. Genitalia: Male, patient aware US/US OB /maternal detail IMPRESSION: 1. Single, living, intrauterine with appropriate biometry. 2. Bilateral pyelectasis. Remainder of the survey was within normal limits. DISCUSSION: I reviewed today's ultrasound findings. The findings on today's examination was the suggestive of bilateral UPJ reflux. I reassured the patient that this is a benign condition that will most likely resolve spontaneously. I briefly discussed the approximate management and prognosis. We discussed the limitations of ultrasound in diagnosing aneuploidy and other congenital abnormalities. I reviewed the differences between screening test and diagnostic test. Amniocentesis was discussed and declined. She was informed that the baseline incidence of congenital abnormalities is approximately 3-5%. Not all these conditions are diagnosable in utero. RECOMMENDATIONS: Suggest a follow-up in approximately 6-8 weeks (not scheduled). Thank you for allowing me to participate in her care. Total time 30 minutes. The time spent was devoted to counseling the patient about the disease and diagnosis, coordinating care including reviewing her records, pertinent lab data and studies, as well as discussing diagnostic evaluation and workup, plan therapeutic interventions and future disposition of care. This includes any additional research needed to obtain further information in formulating the plan of care of this patient. This note was generated with a voice recognition program. Please excuse any errors which may have been overlooked during my review of this note. Sometimes these errors may affect the content or meaning of a given sentence.
== END 2020-08-13 10:56 | disposition home or self-care (01) ==
LOC: HO.US 10:55
PROVIDERS: PCP Family Medicine; Visit Provider Obstetrics & Gynecology
DX: Z34.82 Encounter for supervision of other normal pregnancy, second trimester (principal); Z36.3 Encounter for antenatal screening for malformations
CPT/HCPCS: 76811

== ENCOUNTER → 2020-08-24 14:41 | Outpatient (BNVA) | payer MEDICAID, SELFPAY | PROVIDERS: PCP Family Medicine; Visit Provider Advanced Practice Midwife | DX: Z34.92 Encounter for supervision of normal pregnancy, unspecified, second trimester (principal); Z3A.20 20 weeks gestation of pregnancy | CPT/HCPCS: 81003; 99212 ==

== ENCOUNTER → 2020-09-21 09:26 | Outpatient (BNVA) | payer MEDICAID, SELFPAY | PROVIDERS: Visit Provider Advanced Practice Midwife | DX: Z34.92 Encounter for supervision of normal pregnancy, unspecified, second trimester (principal); Z3A.24 24 weeks gestation of pregnancy | CPT/HCPCS: 81003; 99212 ==

== ENCOUNTER 2020-10-01 12:33 | Outpatient (REF) | payer MEDICAID, SELFPAY ==
--- NOTE | ~2020-10-01 | US_ITS ---
EXAMINATION: OBSTETRICAL ULTRASOUND, Follow up HISTORY: 25-year-old at the 25.6 weeks of gestation Size date discrepancy Pyelectasis COMPARISON: 08/13/2020 TECHNIQUE: Real time transabdominal imaging with color and M-mode Doppler. PRESENTATION: Vertex PLACENTA LOCATION: Posterior without previa AMNIOTIC FLUID: Deep vertical pocket the 6.1cm MEASUREMENTS: 1. Biparietal Diameter: 6.2 cm; 25.2 wks 2. Head Circumference: 23.1 cm; 25.1 wks 3. Abdominal Circumference: 21.4 cm; 26.0 wks 4. Femur Length: 4.7 cm; 5.5 wks 5. Heart Rate: 160 beats per minute WEIGHT: EFW: 844 grams (1 lbs 14 oz) -- 33 %. Left renal pelvis measured 0.53 cm consistent with pyelectasis. Ureters not seen. This is suggestive of UPJ reflux. Overall the finding is stable. The right kidney is within normal limits. BIOPHYSICAL PROFILE: Motion: 2 Tone: 2 Breathin Amniotic Fluid: 2 Total score: 8/8 GESTATIONAL AGE: 1. Established GA: 25.6 wks 2. GA from [facility]: 25.4 wks ESTIMATED DATE OF DELIVERY: 1. Established JOB: 01/08/2021 2. JOB from [facility]: 01/10/2021 US/US OB follow up IMPRESSION: 1. A single active fetus is in vertex presentation 2. Size equals dates 3. Left pyelectasis, stable I informed the patient that the renal pelvises are still mildly dilated. The ureter appears normal. Right kidney is within normal limits. Gave her reassurance. We reviewed the approximate management of UPJ reflux. A follow-up in approximately 6 weeks is scheduled. Thank you very much for this referral. Total time 30 minutes. The time spent was devoted to counseling the patient about the disease and diagnosis, coordinating care including reviewing her records, pertinent lab data and studies, as well as discussing diagnostic evaluation and workup, plan therapeutic interventions and future disposition of care. This includes any additional research needed to obtain further information in formulating the plan of care of this patient. This note was generated with a voice recognition program. Please excuse any errors which may have been overlooked during my review of this note. Sometimes these errors may affect the content or meaning of a given sentence.
== END 2020-10-01 12:34 | disposition home or self-care (01) ==
LOC: HO.US 12:33
PROVIDERS: Visit Provider Obstetrics & Gynecology
DX: O26.892 Other specified pregnancy related conditions, second trimester (principal); R93.422 Abnormal radiologic findings on diagnostic imaging of left kidney; R93.421 Abnormal radiologic findings on diagnostic imaging of right kidney; Z3A.25 25 weeks gestation of pregnancy
CPT/HCPCS: 76816

== ENCOUNTER → 2020-10-19 09:36 | Outpatient (BNVA) | payer MEDICAID, SELFPAY | PROVIDERS: Visit Provider Advanced Practice Midwife | DX: Z34.93 Encounter for supervision of normal pregnancy, unspecified, third trimester (principal); Z3A.28 28 weeks gestation of pregnancy | CPT/HCPCS: 99212 ==

== ENCOUNTER 2020-11-03 15:04 | Outpatient (REF) | payer MEDICAID, SELFPAY ==
[2020-11-03 18:19] LABS: Hematocrit 31.6 % (37-47); Hemoglobin 10.5 g/dl (12.0-16.0); Mean Corpuscular HGB Conc 33.2 g/dl (31.0-35.0); Mean Corpuscular Hemoglobin 28.7 pg (27.0-33.0); Mean Corpuscular Volume 86.3 fL (80-98); Mean Platelet Volume 12.8 fL (9.4-12.3); Platelet Count 135 X10*3/uL (160-400); Red Blood Count 3.66 X10*6/uL (4.20-5.50); Red Cell Distribution Width 12.9 % (11.0-16.0); White Blood Count 6.7 X10*3/uL (4.8-10.8)
[2020-11-03 18:28] LABS: Glucose 1 Hour PP 50gm Dose 104 mg/dL (60-140)
[2020-11-03 18:52] LABS: Syphilis Screen Nonreactive (Nonreactive)
== END 2020-11-03 15:05 | disposition home or self-care (01) ==
LOC: HO.LAB 15:04
PROVIDERS: Referring Provider Advanced Practice Midwife; Visit Provider Obstetrics & Gynecology
DX: Z34.93 Encounter for supervision of normal pregnancy, unspecified, third trimester (principal); Z3A.30 30 weeks gestation of pregnancy
CPT/HCPCS: 36415; 85027; 86780; 99212

== ENCOUNTER 2020-11-12 12:29 | Outpatient (REF) | payer MEDICAID, SELFPAY ==
--- NOTE | ~2020-11-12 | US_ITS ---
EXAMINATION: OBSTETRICAL ULTRASOUND, Follow up HISTORY: 25-year-old at 31.6 weeks of gestation Size date discrepancy pyelectasis COMPARISON: 10/01/2020 TECHNIQUE: Real time transabdominal imaging with color and M-mode Doppler. PRESENTATION: Vertex PLACENTA LOCATION: Posterior without previa AMNIOTIC FLUID: COLEEN 9.2 cm MEASUREMENTS: 1. Biparietal Diameter: 7.5 cm; 30.2 wks 2. Head Circumference: 28.8 cm; 31.5 wks 3. Abdominal Circumference: 27.5 cm; 31.4 wks 4. Femur Length: 5.9 cm; 30.5 wks 5. Heart Rate: 155 beats per minute WEIGHT: EFW: 1713 grams (3 lbs 12 oz) -- 19 %. The views of the lateral ventricles, posterior fossa, four-chamber view of the heart, stomach and urinary bladder are within normal limits. Right renal pelvis measured 2 mm and the left 5 mm. These are within normal limits. BIOPHYSICAL PROFILE: Motion: 2 Tone: 2 Breathin Amniotic Fluid: 2 Total score: 8/8 UA Doppler showed a SD ratio of 3.5. GESTATIONAL AGE: 1. Established GA: 31.6 wks 2. GA from [facility]: 31.1 wks ESTIMATED DATE OF DELIVERY: 1. Established JOB: 01/08/2021 2. JOB from [facility]: 01/13/2021 US/US OB follow up IMPRESSION: 1. A single active fetus is in vertex presentation 2. Size equals dates, compared to prior exam, there has been slightly less than expected interval growth. The EFW corresponds to 19th percentile. 3. Normal renal pelvises, bilaterally. 4. Reassuring biophysical profile and UA Doppler I reviewed today's ultrasound findings and discussed the limitations of ultrasound and estimating weights. While the EFW that corresponds to 19th percentile is within normal limits, compared to the prior exam, this represents less than expected interval growth. testing is reassuring. The renal pelvises sees are within normal limits. Recommended a repeat the growth in approximately 4 weeks (not scheduled). Thank you very much for this referral. Total time 30 minutes. The time spent was devoted to counseling the patient about the disease and diagnosis, coordinating care including reviewing her records, pertinent lab data and studies, as well as discussing diagnostic evaluation and workup, plan therapeutic interventions and future disposition of care. This includes any additional research needed to obtain further information in formulating the plan of care of this patient. This note was generated with a voice recognition program. Please excuse any errors which may have been overlooked during my review of this note. Sometimes these errors may affect the content or meaning of a given sentence.
--- NOTE | ~2020-11-12 | US_ITS ---
UA Doppler showed the SD ratio 3.5.
== END 2020-11-12 12:30 | disposition home or self-care (01) ==
LOC: HO.US 12:29
PROVIDERS: Visit Provider Obstetrics & Gynecology
DX: O35.8XX0 Maternal care for other (suspected) fetal abnormality and damage, not applicable or unspecified (principal)
CPT/HCPCS: 76816; 76820

== ENCOUNTER → 2020-11-19 10:50 | Outpatient (BNVA) | payer MEDICAID, SELFPAY | PROVIDERS: Visit Provider Advanced Practice Midwife | DX: Z34.93 Encounter for supervision of normal pregnancy, unspecified, third trimester (principal); Z3A.32 32 weeks gestation of pregnancy | CPT/HCPCS: 81003; 90471; 90715; 99212 ==

== ENCOUNTER → 2020-12-03 11:31 | Outpatient (BNVA) | payer MEDICAID, SELFPAY | PROVIDERS: Visit Provider Advanced Practice Midwife | DX: Z34.83 Encounter for supervision of other normal pregnancy, third trimester (principal); Z3A.34 34 weeks gestation of pregnancy | CPT/HCPCS: 81003; 99212 ==

== ENCOUNTER 2020-12-10 10:55 | Outpatient (REF) | payer MEDICAID, SELFPAY ==
--- NOTE | ~2020-12-10 | US_ITS ---
EXAMINATION: OBSTETRICAL ULTRASOUND, Follow up HISTORY: 25-year-old at the 35.6 weeks of gestation Pyelectasis Small for gestational age COMPARISON: 11/12/2020 TECHNIQUE: Real time transabdominal imaging with color and M-mode Doppler. 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 Biparietal Diameter: 8.0 cm; 32.2 wks 2. Head Circumference: 30.2 cm; 33.4 wks 3. Abdominal Circumference: 29.9 cm; 34.0 wks 4. Femur Length: 6.5 cm; 33.5 wks 5. Heart Rate: 156 beats per minute WEIGHT: EFW: 2238 grams (4 lbs 15 oz) -- 6 %. Right renal pelvis is measuring 0.5 cm and the left 0.7 cm. BIOPHYSICAL PROFILE: Motion: 2 Tone: 2 Breathin Amniotic Fluid: 2 Total score: 8/8 UA Doppler showed the SD ratio of 2.7. This is within normal range and stable compared to her exam. GESTATIONAL AGE: 1. Established GA: 35.6 wks 2. GA from [facility]: 33.3 wks ESTIMATED DATE OF DELIVERY: 1. Established JOB: 01/08/2021 2. JOB from [facility]: 01/25/2021 US/US OB velocimetry umbilical ar IMPRESSION: 1. A single active fetus is in vertex presentation 2. Size less than dates, EFW corresponds to 6th percentile. However compared to the exam in October, there has been appropriate interval growth. 3. Reassuring biophysical profile with normal UA SD ratio. 4. Left pyelectasis I reviewed today's ultrasound findings and informed her that the interval growth is appropriate. testing is reassuring. We discussed the limitations of ultrasound and estimating weights. She is aware that majority of the fetuses whose EFW falls below 10th percentile are constitutionally small but otherwise healthy fetuses who are growing to their full genetic potential. Unfortunately in utero, it is difficult to identify dose fetuses who are not growing to their full genetic potential due to placental insufficiency. We discussed the various indirect method of evaluating the placental function on ultrasound. So far the testing as well as umbilical cord Doppler evaluations are reassuring. The left pyelectasis persists. I informed her that this is a benign condition which will most likely resolve spontaneously later in gestation. Today's finding is most suggestive of UPJ reflux. At this point it would be reasonable to arrange for pediatric follow-up renal ultrasound at approximately 3-4 weeks of . Thank you very much for this referral. She is to start weekly testing. Total time 30 minutes. The time spent was devoted to counseling the patient about the disease and diagnosis, coordinating care including reviewing her records, pertinent lab data and studies, as well as discussing diagnostic evaluation and workup, plan therapeutic interventions and future disposition of care. This includes any additional research needed to obtain further information in formulating the plan of care of this patient. This note was generated with a voice recognition program. Please excuse any errors which may have been overlooked during my review of this note. Sometimes these errors may affect the content or meaning of a given sentence.
--- NOTE | ~2020-12-10 | US_ITS ---
EXAMINATION: OBSTETRICAL ULTRASOUND, Follow up HISTORY: 25-year-old at the 35.6 weeks of gestation Pyelectasis Small for gestational age COMPARISON: 11/12/2020 TECHNIQUE: Real time transabdominal imaging with color and M-mode Doppler. PRESENTATION: Vertex PLACENTA LOCATION: Posterior without previa AMNIOTIC FLUID: M ASL INTERPRETER 4.0 cm, COLEEN 6.6 cm MEASUREMENTS: 1. Biparietal Diameter: 8.0 cm; 32.2 wks 2. Head Circumference: 30.2 cm; 33.4 wks 3. Abdominal Circumference: 29.9 cm; 34.0 wks 4. Femur Length: 6.5 cm; 33.5 wks 5. Heart Rate: 156 beats per minute WEIGHT: EFW: 2238 grams (4 lbs 15 oz) -- 6 %. Right renal pelvis is measuring 0.5 cm and the left 0.7 cm. BIOPHYSICAL PROFILE: Motion: 2 Tone: 2 Breathin Amniotic Fluid: 2 Total score: 8/8 UA Doppler showed the SD ratio of 2.7. This is within normal range and stable compared to her exam. GESTATIONAL AGE: 1. Established GA: 35.6 wks 2. GA from [facility]: 33.3 wks ESTIMATED DATE OF DELIVERY: 1. Established JOB: 01/08/2021 2. JOB from [facility]: 01/25/2021 US/US OB follow up IMPRESSION: 1. A single active fetus is in vertex presentation 2. Size less than dates, EFW corresponds to 6th percentile. However compared to the exam in October, there has been appropriate interval growth. 3. Reassuring biophysical profile with normal UA SD ratio. 4. Left pyelectasis I reviewed today's ultrasound findings and informed her that the interval growth is appropriate. testing is reassuring. We discussed the limitations of ultrasound and estimating weights. She is aware that majority of the fetuses whose EFW falls below 10th percentile are constitutionally small but otherwise healthy fetuses who are growing to their full genetic potential. Unfortunately in utero, it is difficult to identify dose fetuses who are not growing to their full genetic potential due to placental insufficiency. We discussed the various indirect method of evaluating the placental function on ultrasound. So far the testing as well as umbilical cord Doppler evaluations are reassuring. The left pyelectasis persists. I informed her that this is a benign condition which will most likely resolve spontaneously later in gestation. Today's finding is most suggestive of UPJ reflux. At this point it would be reasonable to arrange for pediatric follow-up renal ultrasound at approximately 3-4 weeks of . Thank you very much for this referral. She is to start weekly testing. Total time 30 minutes. The time spent was devoted to counseling the patient about the disease and diagnosis, coordinating care including reviewing her records, pertinent lab data and studies, as well as discussing diagnostic evaluation and workup, plan therapeutic interventions and future disposition of care. This includes any additional research needed to obtain further information in formulating the plan of care of this patient. This note was generated with a voice recognition program. Please excuse any errors which may have been overlooked during my review of this note. Sometimes these errors may affect the content or meaning of a given sentence.
== END 2020-12-10 10:56 | disposition home or self-care (01) ==
LOC: HO.US 10:55
PROVIDERS: PCP Family Medicine; Visit Provider Obstetrics & Gynecology
DX: O35.8XX0 Maternal care for other (suspected) fetal abnormality and damage, not applicable or unspecified (principal)
CPT/HCPCS: 76816; 76820

== ENCOUNTER 2020-12-11 08:10 | Emergency (ER) | payer MEDICAID, SELFPAY ==
[2020-12-11 08:39] VITALS: BP 115/71; PULSE 79; RESP 79; TEMP 36.7; O2SAT 99; BMI 28.9
--- NOTE | 2020-12-11 09:33 | ED.GENADULT ---
HPI - General Adult General Chief complaint: General Medical Stated complaint: can get rings off finger Time Seen by Provider: 12/11/20 09:14 Source: patient Mode of arrival: ambulatory Limitations: no limitations History of Present Illness HPI narrative: Patient reports that she cannot get off 2 rings off of 2 of her fingers that have been stuck since this morning when she woke up. She reports that she attempted to remove the rings with oil and her friends tried to help her and were unsuccessful. She reports that she does not mind if they have to be cut. She denies any other symptoms complaints or concerns at this time. Related Data Previous Rx's Medication Instructions Recorded prenat.vits,fabio,aqu-kxyx-rpzbr 1 tab PO DAILY #90 tab 05/19/20 ferrous sulfate 324 mg (65 mg 324 mg PO TID #90 tab 11/04/20 iron) tablet,delayed release Allergies Allergy/AdvReac Type Severity Reaction Status Date / Time No Known Allergies Allergy Verified 11/19/20 11:00 [No Known Allergies*] Review of Systems Review of Systems: Constitutional : No Fever, No Chills, Cardiovascular : No Chest Pain, No SOB Respiratory : No Dyspnea Gastrointestinal : No abdominal pain Musculoskeletal : No Joint Swelling Skin : positive foreign bodies on fingers which are the patient's rings, No skin laceration, No Foreign bodies, No rash, No surrounding erythema Neuro : No Weakness, No Numbness/tingling Psych : No SI/HI/thoughts of self injury Yes all other systems are reviewed and are negative [facility] Past Medical History Attestation statement: The following information was validated with the patient. Medical History Anemia Surgical History History of Family History Family History Mother History of hypertension History of anxiety disorder Father No problems noted. Maternal Grandmother History of diabetes mellitus, type II Hx of primary hypertension Maternal Grandfather No problems noted. Paternal Grandmother No problems noted. Social History Social History Household Members: Significant Other and Children Alcohol intake: never Patient Tobacco Use Status: Never used Tobacco Advance Directives: No Advance Directives Information Provided: No Patient : Yes Sexual orientation: Straight/Heterosexual Gender identity: female Physical Exam Vital Signs: Vital Signs: Last Vital Signs Temp 98.1 F 12/11/20 08:39 Pulse 79 12/11/20 08:39 Resp 79 H 12/11/20 08:39 BP 115/71 12/11/20 08:39 Pulse Ox 99 12/11/20 08:39 Body Mass Index 28.9 vital signs have been reviewed as normal and appeared to be correct. Blood pressure normal. Heart rate normal. Respiration rate normal. Temperature normal. Oxygen saturation normal. Appearance: Alert. Oriented X3. No acute distress. Head: Normal external exam. Normocephalic. Atraumatic. Eyes: PERRLA. EOMI. Conjunctiva and sclera normal. Eyelids normal. ENT: Pharynx normal. Uvula midline. Moist mucous membranes. Neck: Normal inspection. Neck supple. FROM. No meningeal signs. CVS: Normal heart rate and rhythm. Back: Full range of motion noted. No rashes/lesion/induration/fluctuance or signs of infection noted. Skin: Skin warm and dry. Normal skin color. Normal skin turgor. No rashes/lesions/lacerations noted. Extremities: To white-colored rings to bilateral ring fingers with mild surrounding soft tissue swelling. No surrounding erythema. No upper or lower extremity edema. No signs of infection noted. Patient has full range of motion of all fingers and hand/wrist joint. Otherwise all other extremities Extremities exhibit normal range of motion and nontender. Neuro: Oriented X 3. No motor deficit. No sensory deficit. Reflexes normal. Normal steady gait. No focal neuro deficits noted. Vascular: + radial pulses. Normal cap refill. No cyanosis noted to upper extremity nails. Course Course Course Narrative: I was able to remove 1 of the white-colored rings with lubrication patient tolerated procedure well no complications. The 2nd ring we were unable to remove with lubrication therefore patient signed consent to remove this ring by the means of cutting it. It was cut off and patient tolerated procedure well no complications. Will DC home with instructions return if any new or worsening symptoms and to follow-up with PCP. Patient understands agrees with this plan. Medical Decision Making Medical Records Medical records reviewed: Yes I reviewed the patient's medical records. Discharge Plan Discharge Clinical Impression: Foreign body finger Patient Disposition: Home, Self-Care Instructions: Soft Tissue Foreign Body (ED) Prescriptions: No Action ferrous sulfate 324 mg (65 mg iron) tablet,delayed release (DR/EC) 324 mg PO TID Qty: 90 RF: 3 prenat.vits,fabio,mjp-vhuv-leyam Tablet 1 tab PO DAILY Qty: 90 RF: 3 Referrals: Mariella Alcantara MD [Primary Care Provider] - 2 days Print Language: Kyrgyz
== END 2020-12-11 09:44 | disposition home or self-care (01) ==
PROVIDERS: Emergency Provider Emergency Medicine; PCP Family Medicine
DX: S60.455A Superficial foreign body of left ring finger, initial encounter (principal); M79.5 Residual foreign body in soft tissue; S60.454A Superficial foreign body of right ring finger, initial encounter; X58.XXXA Exposure to other specified factors, initial encounter; Y93.9 Activity, unspecified; Y92.9 Unspecified place or not applicable; Y99.9 Unspecified external cause status
CPT/HCPCS: 99283

== ENCOUNTER → 2020-12-13 10:45 | Outpatient (BNVA) | payer MEDICAID, SELFPAY | PROVIDERS: Visit Provider Advanced Practice Midwife | DX: O36.5930 Maternal care for other known or suspected poor fetal growth, third trimester, not applicable or unspecified (principal); Z3A.36 36 weeks gestation of pregnancy | CPT/HCPCS: 59025; 81003; 99212 ==

== ENCOUNTER 2020-12-17 13:07 | Outpatient (REF) | payer MEDICAID, SELFPAY ==
--- NOTE | ~2020-12-17 | US_ITS ---
EXAMINATION: US OBSTETRICAL (BIOPHYSICAL PROFILE) CLINICAL INFORMATION: 25-year-old at the 36.6 weeks of gestation growth restriction Right pyelectasis COMPARISON: 12/10/2020 TECHNIQUE: Biophysical profile is performed over 30 minutes with assessment of breathing, gross body movement, tone, and qualitative amniotic fluid volume. FINDINGS: POSITION: Cephalic PLACENTA: Posterior without previa Maximum vertical pocket 3.0 cm CARDIAC ACTIVITY: 127 beats per minute The right renal pelvis measured 0.8 cm which is stable from prior. BIOPHYSICAL PROFILE: Motion: 2 Tone: 2 Breathin Amniotic Fluid: 2 The total biophysical score is 8/8 UA Doppler SD ratio 3.0 US/US OB follow up IMPRESSION: 1. Single intrauterine gestation in vertex position. 2. Reassuring BPP and COLEEN 3. Normal SD ratio in the UA Continue NST 2 times per week and weekly BPP with Doppler. Thank you for allowing me to participate in her care. This note was generated with a voice recognition program. Please excuse any errors which may have been overlooked during my review of this note. Sometimes these errors may affect the content or meaning of a given sentence.
--- NOTE | ~2020-12-17 | US_ITS ---
EXAMINATION: US OBSTETRICAL (BIOPHYSICAL PROFILE) CLINICAL INFORMATION: 25-year-old at the 36.6 weeks of gestation growth restriction Right pyelectasis COMPARISON: 12/10/2020 TECHNIQUE: Biophysical profile is performed over 30 minutes with assessment of breathing, gross body movement, tone, and qualitative amniotic fluid volume. FINDINGS: POSITION: Cephalic PLACENTA: Posterior without previa Maximum vertical pocket 3.0 cm CARDIAC ACTIVITY: 127 beats per minute The right renal pelvis measured 0.8 cm which is stable from prior. BIOPHYSICAL PROFILE: Motion: 2 Tone: 2 Breathin Amniotic Fluid: 2 The total biophysical score is 8/8 UA Doppler SD ratio 3.0 US/US OB velocimetry umbilical ar IMPRESSION: 1. Single intrauterine gestation in vertex position. 2. Reassuring BPP and COLEEN 3. Normal SD ratio in the UA Continue NST 2 times per week and weekly BPP with Doppler. Thank you for allowing me to participate in her care. This note was generated with a voice recognition program. Please excuse any errors which may have been overlooked during my review of this note. Sometimes these errors may affect the content or meaning of a given sentence.
== END 2020-12-17 13:08 | disposition home or self-care (01) ==
LOC: HO.US 13:07
PROVIDERS: Visit Provider Advanced Practice Midwife
DX: O35.8XX0 Maternal care for other (suspected) fetal abnormality and damage, not applicable or unspecified (principal)
CPT/HCPCS: 76816; 76820

== ENCOUNTER → 2020-12-21 14:40 | Outpatient (BNVA) | payer MEDICAID, SELFPAY | PROVIDERS: Visit Provider Advanced Practice Midwife | DX: O36.5930 Maternal care for other known or suspected poor fetal growth, third trimester, not applicable or unspecified (principal); Z3A.37 37 weeks gestation of pregnancy | CPT/HCPCS: 59025; 81003; 99212 ==

== ENCOUNTER → 2020-12-23 14:06 | Outpatient (BNVA) | payer MEDICAID, SELFPAY | PROVIDERS: Visit Provider Advanced Practice Midwife | DX: O36.5930 Maternal care for other known or suspected poor fetal growth, third trimester, not applicable or unspecified (principal); O99.013 Anemia complicating pregnancy, third trimester; O34.219 Maternal care for unspecified type scar from previous cesarean delivery; Z3A.37 37 weeks gestation of pregnancy | CPT/HCPCS: 59025; 81003; 99212 ==

== ENCOUNTER 2020-12-24 13:28 | Outpatient (REF) | payer MEDICAID, SELFPAY ==
--- NOTE | ~2020-12-24 | US_ITS ---
EXAMINATION: OBSTETRICAL ULTRASOUND, Follow up HISTORY: 25-year-old at the 37.6 weeks of gestation growth restriction Pyelectasis COMPARISON: 12/17/20 TECHNIQUE: Real time transabdominal imaging with color and M-mode Doppler. PRESENTATION: Vertex PLACENTA LOCATION: Posterior without previa AMNIOTIC FLUID: COLEEN 9.1 cm MEASUREMENTS: 1. Biparietal Diameter: 8.24 cm; 33.6 wks 2. Head Circumference: 31.0 cm; 34.5 wks 3. Abdominal Circumference: 31.0 cm; 34.6 wks 4. Femur Length: 6.9 cm; 35.2 wks 5. Heart Rate: 138 beats per minute WEIGHT: EFW: 2522 grams (5 lbs 9 oz) -- 5 %. Right renal pelvis measured 0.9 cm. The left 0.7 cm. These are consistent with the pyelectasis. The findings are suggestive of UPJ reflux. BIOPHYSICAL PROFILE: Motion: 2 Tone: 2 Breathin Amniotic Fluid: 2 Total score: 8/8 UA Doppler showed the SD ratio of 2.7 GESTATIONAL AGE: 1. Established GA: 37.6 wks 2. GA from [facility]: 34.5 wks ESTIMATED DATE OF DELIVERY: 1. Established JOB: 01/08/2021 2. JOB from [facility]: 01/30/2021 US/US OB velocimetry umbilical ar IMPRESSION: 1. A single active fetus is in vertex presentation 2. Size less than dates, EFW corresponds to 5th percentile 3. Bilateral pyelectasis. The ultrasound findings are suggestive of UPJ reflux. 4. Reassuring biophysical profile 5. Normal SD ratio in the umbilical artery I informed the patient that the EFW corresponds to 5th percentile. However the interval growth is appropriate. testing including the UA Doppler is within normal limits. pyelectasis is still present. Recommended that she range for a pediatric renal ultrasound after delivery. UPJ reflux is a benign condition that resolves spontaneously in the majority of the cases. Thank you very much for this referral. Total time 30 minutes. The time spent was devoted to counseling the patient about the disease and diagnosis, coordinating care including reviewing her records, pertinent lab data and studies, as well as discussing diagnostic evaluation and workup, plan therapeutic interventions and future disposition of care. This includes any additional research needed to obtain further information in formulating the plan of care of this patient. This note was generated with a voice recognition program. Please excuse any errors which may have been overlooked during my review of this note. Sometimes these errors may affect the content or meaning of a given sentence.
--- NOTE | ~2020-12-24 | US_ITS ---
EXAMINATION: OBSTETRICAL ULTRASOUND, Follow up HISTORY: 25-year-old at the 37.6 weeks of gestation growth restriction Pyelectasis COMPARISON: 12/17/20 TECHNIQUE: Real time transabdominal imaging with color and M-mode Doppler. PRESENTATION: Vertex PLACENTA LOCATION: Posterior without previa AMNIOTIC FLUID: COLEEN 9.1 cm MEASUREMENTS: 1. Biparietal Diameter: 8.24 cm; 33.6 wks 2. Head Circumference: 31.0 cm; 34.5 wks 3. Abdominal Circumference: 31.0 cm; 34.6 wks 4. Femur Length: 6.9 cm; 35.2 wks 5. Heart Rate: 138 beats per minute WEIGHT: EFW: 2522 grams (5 lbs 9 oz) -- 5 %. Right renal pelvis measured 0.9 cm. The left 0.7 cm. These are consistent with the pyelectasis. The findings are suggestive of UPJ reflux. BIOPHYSICAL PROFILE: Motion: 2 Tone: 2 Breathin Amniotic Fluid: 2 Total score: 8/8 UA Doppler showed the SD ratio of 2.7 GESTATIONAL AGE: 1. Established GA: 37.6 wks 2. GA from [facility]: 34.5 wks ESTIMATED DATE OF DELIVERY: 1. Established JOB: 01/08/2021 2. JOB from [facility]: 01/30/2021 US/US OB follow up IMPRESSION: 1. A single active fetus is in vertex presentation 2. Size less than dates, EFW corresponds to 5th percentile 3. Bilateral pyelectasis. The ultrasound findings are suggestive of UPJ reflux. 4. Reassuring biophysical profile 5. Normal SD ratio in the umbilical artery I informed the patient that the EFW corresponds to 5th percentile. However the interval growth is appropriate. testing including the UA Doppler is within normal limits. pyelectasis is still present. Recommended that she range for a pediatric renal ultrasound after delivery. UPJ reflux is a benign condition that resolves spontaneously in the majority of the cases. Thank you very much for this referral. Total time 30 minutes. The time spent was devoted to counseling the patient about the disease and diagnosis, coordinating care including reviewing her records, pertinent lab data and studies, as well as discussing diagnostic evaluation and workup, plan therapeutic interventions and future disposition of care. This includes any additional research needed to obtain further information in formulating the plan of care of this patient. This note was generated with a voice recognition program. Please excuse any errors which may have been overlooked during my review of this note. Sometimes these errors may affect the content or meaning of a given sentence.
== END 2020-12-24 13:29 | disposition home or self-care (01) ==
LOC: HO.US 13:28
PROVIDERS: Visit Provider Advanced Practice Midwife
DX: Z34.93 Encounter for supervision of normal pregnancy, unspecified, third trimester (principal)
CPT/HCPCS: 76816; 76820

== ENCOUNTER → 2020-12-28 14:42 | Outpatient (BNVA) | payer MEDICAID, SELFPAY | PROVIDERS: Visit Provider Obstetrics & Gynecology | DX: O36.5930 Maternal care for other known or suspected poor fetal growth, third trimester, not applicable or unspecified (principal); O99.013 Anemia complicating pregnancy, third trimester; O99.891 Other specified diseases and conditions complicating pregnancy; N13.39 Other hydronephrosis; O34.219 Maternal care for unspecified type scar from previous cesarean delivery; Z3A.38 38 weeks gestation of pregnancy | CPT/HCPCS: 59025; 99212 ==

== ENCOUNTER 2021-01-27 13:50 | Outpatient (REF) | payer MEDICAID, SELFPAY | END 2021-01-27 13:51 | disposition home or self-care (01) | LOC: HO.LAB 13:50 | PROVIDERS: PCP Family Medicine; Visit Provider Advanced Practice Midwife | DX: Z39.2 Encounter for routine postpartum follow-up (principal) | CPT/HCPCS: 88142; 99212 ==

== ENCOUNTER 2022-07-21 14:48 | Emergency (ER) | payer MEDICAID, SELFPAY ==
--- NOTE | ~2022-07-21 | US_ITS ---
EXAMINATION: US OBSTETRICAL ULTRASOUND CLINICAL INFORMATION: Positive test. Vaginal spotting. Abdominal pain. COMPARISON: None available.. LMP: 06/15/2022. Gestational age by maternal dates is 5 weeks 1 day. Estimated date of delivery by maternal dates is 03/22/2023. TECHNIQUE: Ultrasound of the maternal pelvis is performed using transabdominal and transvaginal transducers. Transvaginal imaging is performed due to inadequate visualization transabdominally. M-mode Doppler is also performed. FINDINGS: There is no intrauterine identified. Anteverted uterus. Thickened endometrium measuring 1.4 cm. No gestational sac. MATERNAL ADNEXA: The right maternal ovary measures 3.3 x 1.8 x 2.8 cm. Follicles noted. No suspicious mass or lesion. The left maternal ovary measures 3.1 x 2 x 1.9 cm. Follicles noted. No suspicious finding. There is no significant maternal adnexal mass. No maternal pelvic ascites. US/US OB <= 14 weeks fetus IMPRESSION: There is no intrauterine identified. There is thickening of the endometrium. This appearance could simply be secondary to the early stage of . No ectopic seen. Continued follow-up recommended.
[2022-07-21 14:58] VITALS: BP 129/88; PULSE 78; RESP 14; TEMP 36.1; O2SAT 100; BMI 22.8
--- NOTE | 2022-07-21 14:58 | ED.ABDPAIN ---
HPI - Abdominal Pain General Chief Complaint: Vaginal Bleeding Stated Complaint: possible miscarriage Time Seen by Provider: 07/21/22 23:55 Related Data Previous Rx's Medication Instructions Recorded prenat.vits,fabio,ahu-poak-ulidp 1 tab PO DAILY #90 tabs 05/19/20 ferrous sulfate 324 mg (65 mg 324 mg PO TID #90 tabs 11/04/20 iron) tablet,delayed release norethindrone (contraceptive) 0.35 0.35 mg PO DAILY 30 days #30 tabs 01/27/21 mg tablet (Anh) Allergies Allergy/AdvReac Type Severity Reaction Status Date / Time No Known Allergies Allergy Verified 01/27/21 14:16 [No Known Allergies*] [facility] Past Medical History Medical History Anemia Surgical History History of Family History Family History Mother History of hypertension History of anxiety disorder Father No problems noted. Maternal Grandmother History of diabetes mellitus, type II Hx of primary hypertension Maternal Grandfather No problems noted. Paternal Grandmother No problems noted. Social History Social History Household Members: Significant Other and Children Alcohol intake: never Patient Tobacco Use Status: Never used Tobacco Sexual orientation: Straight/Heterosexual Gender identity: Female Physical Exam ED Vital Signs: BMI result Body Mass Index 22.8 Course Course Course Narrative: RME--27yo F at about 5-6 weeks gestation c/o lower abdominal pain x3 days and vaginal spotting since this morning. Has not received any care yet, admits to 5+ home tests ?miscarriage vs ectopic vs Labs, UA, US ordered Medical Decision Making Lab Data 07/21/22 20:39 07/21/22 20:39 Labs: Lab Results 07/21/22 07/21/22 07/21/22 Range/Units 20:39 20:39 20:39 WBC 6.7 (4.8-10.8) X10*3/uL RBC 4.36 (4.20-5.50) X10*6/uL Hgb 13.2 (12.0-16.0) g/dl Hct 38.2 (37.0-47.0) % MCV 87.6 (80.0-98.0) fL MCH 30.3 (27.0-33.0) pg MCHC 34.6 (31.0-35.0) g/dl RDW 12.0 (11.0-16.0) % Plt Count 170 (160-400) X10*3/uL MPV 12.1 (9.4-12.3) fL Immature Gran % (Auto) 0.3 (0.0-0.4) % Neut % (Auto) 64.0 (45-73) % Lymph % (Auto) 26.8 (20-40) % [place] % (Auto) 7.4 (2-11) % Eos % (Auto) 0.9 (0-4) % Baso % (Auto) 0.6 (0-2) % Lymph # (Auto) 1.8 (1.2-4.9) X10*3/uL [place] # (Auto) 0.5 (0.1-1.2) X10*3/uL Eos # (Auto) 0.1 (0.0-0.4) X10*3/uL Baso # (Auto) 0.0 (0.0-0.2) X10*3/uL Abs Immat Gran (auto) 0.02 (0.00-0.03) X10*3/uL Absolute Neuts (auto) 4.3 (2.0-8.3) x10*3/uL Absolute Nucleated RBC 0.000 (0.0-0.012) X10*3/uL Nucleated RBC % (auto) 0.0 (0.0-0.2) /100WBC Sodium 142 (135-145) mmol/L Potassium 4.0 (3.3-5.1) mmol/L Chloride 111 H (96-108) mmol/L Carbon Dioxide 24 (22-29) mmol/L Anion Gap 11 L (12-20) BUN 8 L (9-16) mg/dL Creatinine 0.62 (0.5-1.4) mg/dL Estim Creat Clear Calc 101.0 Estimated GFR > 60 Random Glucose 75 (60-115) mg/dL Calcium 8.5 (8.4-10.2) mg/dL Magnesium 2.2 (1.6-2.6) mg/dL Total Bilirubin 1.2 H (0.0-1.0) mg/dL Direct Bilirubin 0.4 (0.0-0.5) mg/dL AST 12 (5-31) U/L ALT 6 (0-31) U/L Alkaline Phosphatase 182 H (39-117) U/L Total Protein 7.0 (6.5-8.0) g/dL Albumin 4.4 (3.5-5.0) g/dL Lipase 15 (8-78) U/L Beta HCG, Quant 3 mIU/mL Urine Color Urine Appearance Urine pH (5.0-9.0) Ur Specific [place] (1.005-1.025) Urine Protein (Neg-Trace) mg/dL Urine Glucose (UA) (Negative) mg/dL Urine Ketones (Negative) mg/dL Urine Blood (Negative) Urine Nitrite (Negative) Ur Leukocyte Esterase (Negative) Urine RBC (0-2) /HPF Urine WBC (0-5) /HPF Ur Squamous Epith Cells (0-2) /HPF Urine Bacteria (None Seen) Hyaline Casts (0-2) /LPF Blood Type O Positive 07/21/22 Range/Units 20:39 WBC (4.8-10.8) X10*3/uL RBC (4.20-5.50) X10*6/uL Hgb (12.0-16.0) g/dl Hct (37.0-47.0) % MCV (80.0-98.0) fL MCH (27.0-33.0) pg MCHC (31.0-35.0) g/dl RDW (11.0-16.0) % Plt Count (160-400) X10*3/uL MPV (9.4-12.3) fL Immature Gran % (Auto) (0.0-0.4) % Neut % (Auto) (45-73) % Lymph % (Auto) (20-40) % [place] % (Auto) (2-11) % Eos % (Auto) (0-4) % Baso % (Auto) (0-2) % Lymph # (Auto) (1.2-4.9) X10*3/uL [place] # (Auto) (0.1-1.2) X10*3/uL Eos # (Auto) (0.0-0.4) X10*3/uL Baso # (Auto) (0.0-0.2) X10*3/uL Abs Immat Gran (auto) (0.00-0.03) X10*3/uL Absolute Neuts (auto) (2.0-8.3) x10*3/uL Absolute Nucleated RBC (0.0-0.012) X10*3/uL Nucleated RBC % (auto) (0.0-0.2) /100WBC Sodium (135-145) mmol/L Potassium (3.3-5.1) mmol/L Chloride (96-108) mmol/L Carbon Dioxide (22-29) mmol/L Anion Gap (12-20) BUN (9-16) mg/dL Creatinine (0.5-1.4) mg/dL Estim Creat Clear Calc Estimated GFR Random Glucose (60-115) mg/dL Calcium (8.4-10.2) mg/dL Magnesium (1.6-2.6) mg/dL Total Bilirubin (0.0-1.0) mg/dL Direct Bilirubin (0.0-0.5) mg/dL AST (5-31) U/L ALT (0-31) U/L Alkaline Phosphatase (39-117) U/L Total Protein (6.5-8.0) g/dL Albumin (3.5-5.0) g/dL Lipase (8-78) U/L Beta HCG, Quant mIU/mL Urine Color Yellow Urine Appearance Clear Urine pH 5.5 (5.0-9.0) Ur Specific [place] >= 1.030 H (1.005-1.025) Urine Protein Negative (Neg-Trace) mg/dL Urine Glucose (UA) Negative (Negative) mg/dL Urine Ketones 15 (Negative) mg/dL Urine Blood Small (1+) H (Negative) Urine Nitrite Negative (Negative) Ur Leukocyte Esterase Negative (Negative) Urine RBC 6-10 H (0-2) /HPF Urine WBC 0-5 (0-5) /HPF Ur Squamous Epith Cells 6-10 (0-2) /HPF Urine Bacteria Trace (None Seen) Hyaline Casts 0-2 (0-2) /LPF Blood Type Discharge Plan Discharge Clinical Impression: Possible , not confirmed Patient Disposition: Home, Self-Care Instructions: Threatened Miscarriage (ED) Additional Instructions: Please return on Sunday July 24, 2022 early in the morning for blood work. If you significant abdominal pain, cramping, worsening bleeding. Please return to the emergency room. You may report straight to the lab. Please follow-up with your primary care physician tomorrow. If you have any worsening or new symptoms, please return to the emergency room or call 911 Prescriptions: No Action ferrous sulfate 324 mg (65 mg iron) tablet,delayed release (DR/EC) 324 mg PO TID Qty: 90 3RF Rx Instructions: w vit c rich juice and diet to avoid constipation prenat.vits,fabio,jke-[id number]-[id number] Tablet 1 tab PO DAILY Qty: 90 3RF norethindrone (contraceptive) [Anh] 0.35 mg tablet 0.35 mg PO DAILY 30 Days Qty: 30 11RF Referrals: Ryan Pereyra MD [Physician] - 07/25/22 Interventions: ED Discharge Assessment Last Done: 07/22/22 00:38 Discharge Date/Time: 07/22/22 00:38
[2022-07-21 20:24] VITALS: BP 118/63; PULSE 69; RESP 18; TEMP 36.4; O2SAT 100
[2022-07-21 20:43] LABS: MANUAL DIFF FLAG NO
--- NOTE | 2022-07-21 20:43 | MHC.EDTECH ---
PT BLOOD DRAWN AND URINE SAMPLE COLLECTED AND SENT TO LAB .
--- OUTSIDE RECORDS SUMMARY | 2022-07-21 20:44 | XMS_ITS | Continuity of Care Document ---
Author Name Unknown Organization [facility] Address [address] [place] [id number]- Care Team Providers Care Marketing Summer Intern Name Role Phone Paula PAYTON, Nasra Kumari Primary Care Physician ( [phone] Encounter [facility] Date(s): 06/16/20 - 07/23/[address] [address]- Attending Physician: Not on Staff, Attending MD Allergies, Adverse Reactions, Alerts Substance Reaction Severity Status NKA Active Immunizations Given and Recorded Vaccine Date Status Refusal Reason influenza virus vaccine, inactivated 01/20/13 Give n tetanus/diphtheria/pertussis, acel(Tdap) 12/16/12 Given Medications Multivitamins with Folic Acid 1 mg oral tablet 1 tablet, By Mouth, Daily, # 90 capsule, 2 Refills, Maintenance, 09/02/15 17:21:00, 1 tablet By Mouth Daily Start Date: 09/02/15 Status: Ordered Zofran 4 mg oral tablet 1 tablet = 4 mg, By Mouth, Every 8 hours, PRN Nausea & Vomiting, # 10 tablet, 0 Refills, Maintenance, Tablet Start Date: 07/12/12 Status: Ordered Problem List Condition Effective Dates Status Health Status Inform ant 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
--- OUTSIDE RECORDS SUMMARY | 2022-07-21 20:44 | XMS_ITS | Continuity of Care Document ---
Author Name Unknown Organization [facility] Address [address] [place] [address]- Care Team Providers Care Scuba Instructor Name Role Phone Nasra Mitchell MD Primary Care Physician Encounter [place] Date(s): 11/04/20 - 11/05/[address] [address] Discharge Disposition: A-D/C Home Attending Physician: Omar Araujo MD Admitting Physician: Omar Araujo MD Referring Physician: Omar Araujo MD Allergies, Adverse Reactions, Alerts Substance Reaction Severity Status NKA Active Immunizations Given and Recorded Vaccine Date Status Refusal Reason influenza virus vaccine, inactivated 01/20/13 Give n tetanus/diphtheria/pertussis, acel(Tdap) 12/16/12 Given Medications Ferrous Sulfate EC Refills 0, Maintenance, 11/04/20 21:15:00 EDT, Partial fill upon patient request if the prescription is for a schedule II opioid drug. 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 Anemia in mother complicatin g , childbirth AND/OR puerperium(Confirmed) 1 11/04/20 Active False premature labor 36.6 wk(Confirmed) Active Uterine scar from previous s urgery in , childbirth and the puerperium(Confirmed) 2 11/04/20 Active 1Problem added by Discern Expert 2Problem added by Discern Expert Procedures Procedure Date Related Diagnosis Body Site Status section Complete d Vital Signs Most recent to oldest [Reference Range]: 1 2 Weight 67.0 kg (11/04/20 8:58 PM) Blood Pressure [90-138/55-84 mm Hg] 103/ 61mm Hg (11/04/20 9:31 PM) Temperature [96.8-100.4 DegF] 98.5 DegF (11/04/20 8:58 PM) Mode of Delivery (Oxygen) Room air (11/04/20 9:13 PM) Blood pressure sites Arm, left (11/04/20 9:13 PM) Temperature Route Oral (11/04/20 9:13 PM) Oral (11/04/20 8:58 PM) Dry Weight 67.0 kg (11/04/20 8:58 PM) Weight Obtained Via Standing scale (11/04/20 8:58 PM) Dry Weight Obtained Via Standing scale (11/04/20 8:58 PM) Social History Social History Type Response Smoking Status Never (less than 100 in lifetime) entered on: 11/04/20 Sex
--- OUTSIDE RECORDS SUMMARY | 2022-07-21 20:44 | XMS_ITS | Continuity of Care Document ---
Author Name Unknown Organization [facility] Address [address] [place] [id number]- Care Team Providers Care Emergency Response Officer Name Role Phone Paula PAYTON, Nasra Kumari Primary Care Physician Encounter [facility] Date(s): 06/23/20 - 07/23/[address] [address]- Attending Physician: Amairani Bardales Admitting Physician: Amairani Bardales Referring Physician: AdmAmairani pickard Allergies, Adverse Reactions, Alerts Substance Reaction Severity [...]
[2022-07-21 20:45] LABS: Basophils Percent Auto 0.6 % (0-2); Eosinophils Absolute Auto 0.1 X10*3/uL (0.0-0.4); Eosinophils Percent Auto 0.9 % (0-4); Hematocrit 38.2 % (37.0-47.0); Hemoglobin 13.2 g/dl (12.0-16.0); Imm Gran Abs Auto 0.02 X10*3/uL (0.00-0.03); Imm Gran Pct Auto 0.3 % (0.0-0.4); Lymphocytes Absolute Auto 1.8 X10*3/uL (1.2-4.9); Lymphocytes Percent Auto 26.8 % (20-40); Mean Corpuscular HGB Conc 34.6 g/dl (31.0-35.0); Mean Corpuscular Hemoglobin 30.3 pg (27.0-33.0); Mean Corpuscular Volume 87.6 fL (80.0-98.0); Mean Platelet Volume 12.1 fL (9.4-12.3); Monocytes Absolute Auto 0.5 X10*3/uL (0.1-1.2); Monocytes Percent Auto 7.4 % (2-11); Neutrophils Absolute Auto 4.3 x10*3/uL (2.0-8.3); Platelet Count 170 X10*3/uL (160-400); Red Blood Count 4.36 X10*6/uL (4.20-5.50); White Blood Count 6.7 X10*3/uL (4.8-10.8)
[2022-07-21 20:48] LABS: Appearance Urine Clear; Color Urine Yellow; Glucose Urine UA Negative (Negative); Leukocyte Esterase Urine Negative (Negative); Nitrite Urine Negative (Negative); PH 5.5 (5.0-9.0); Specific Gravity - Urine >= 1.030 (1.005-1.025); UMIC TRIGGER UACC YES; Urine Blood Small (1+) (Negative); Urine Ketones 15 mg/dL (Negative); Urine Protein Negative (Neg-Trace)
[2022-07-21 21:00] LABS: Bacteria Urine Trace (None Seen); Hyaline Casts Urine 0-2 /LPF (0-2); WBC Urine 0-5 /HPF (0-5)
[2022-07-21 21:06] LABS: Alanine Aminotransferase 6 U/L (0-31); Albumin Level 4.4 g/dL (3.5-5.0); Alkaline Phosphatase 182 U/L (39-117); Anion Gap 11 (12-20); Aspartate Amino Transferase 12 U/L (5-31); Bilirubin Direct 0.4 mg/dL (0.0-0.5); Bilirubin Total 1.2 mg/dL (0.0-1.0); Blood Urea Nitrogen 8 mg/dL (9-16); Calcium 8.5 mg/dL (8.4-10.2); Carbon Dioxide 24 mmol/L (22-29); Chloride 111 mmol/L (96-108); Estimated Glomerular Filt Rate > 60; Glucose Random 75 mg/dL (60-115); HCG Quantitative 3 mIU/mL; Lipase 15 U/L (8-78); Magnesium 2.2 mg/dL (1.6-2.6); Sodium 142 mmol/L (135-145)
--- NOTE | 2022-07-22 00:12 | ED.FEMALEGU ---
HPI - Female Genitourinary General Chief complaint: Vaginal Bleeding Stated complaint: possible miscarriage Time Seen by Provider: 07/21/22 23:55 Source: patient Mode of arrival: ambulatory Limitations: no limitations History of Present Illness HPI Narrative: Patient comes to the emergency room complaining of multiple positive tests at home and complaining of vaginal spotting. If patient is , patient is at approximately 4-5 weeks of gestational age. Patient states that she has low back pain and also has been having pinkish vaginal discharge and some spotting. Patient denies abdominal pain. Related Data Previous Rx's Medication Instructions Recorded prenat.vits,fabio,ljs-ubld-kznvn 1 tab PO DAILY #90 tabs 05/19/20 ferrous sulfate 324 mg (65 mg 324 mg PO TID #90 tabs 11/04/20 iron) tablet,delayed release norethindrone (contraceptive) 0.35 0.35 mg PO DAILY 30 days #30 tabs 01/27/21 mg tablet (Anh) Allergies Allergy/AdvReac Type Severity Reaction Status Date / Time No Known Allergies Allergy Verified 01/27/21 14:16 [No Known Allergies*] Review of Systems Review of Systems: Constitutional : No Weight loss, No Fever, No Chills, No Night Sweats, No Fatigue, No Malaise ENT/Mouth : No Hearing loss, No Ear Pain, No Nasal Congestion, No Sinus Pain, No Hoarseness, No sore throat, No Rhinorrhea, No Swallowing Difficulty Eyes: No Eye Pain, No Swelling, No Redness, No Foreign Body, No Discharge, No Vision Changes Cardiovascular : No Chest Pain, No SOB, No Dyspnea on Exertion, No Orthopnea, No Edema, No Palpitations Respiratory : No Cough, No Sputum, No Wheezing, No Smoke Exposure, No Dyspnea Gastrointestinal : No Nausea, No Vomiting, No Diarrhea, No Constipation, No abdominal Pain, No Hematochezia, No Melena Genitourinary : Patient complaining of pinkish-orange vaginal discharge, spotting, No Dysuria, No Urinary Frequency, No Hematuria, No Urinary Incontinence, No Urgency, No Flank Pain, No Urinary Flow Changes, No Hesitancy Musculoskeletal : No joint pain, No Myalgias, No Joint Swelling Skin : No Skin Lesions, No rash Neuro : No Weakness, No Numbness, No Paresthesias, No Loss of Consciousness, No Dizziness, No Headache Psych : No Anxiety/Panic, No Depression, No SI/HI/AH/VH, No Social Issues, Heme/Lymph: No Bruising, No Bleeding,No Lymphadenopathy Endocrine : No Polyuria, No Polydipsia, No Temperature Intolerance [facility] Past Medical History Medical History Anemia Surgical History History of Family History Family History Mother History of hypertension History of anxiety disorder Father No problems noted. Maternal Grandmother History of diabetes mellitus, type II Hx of primary hypertension Maternal Grandfather No problems noted. Paternal Grandmother No problems noted. Social History Social History Household Members: Significant Other and Children Alcohol intake: never Patient Tobacco Use Status: Never used Tobacco Advance Directives: No Advance Directives Information Provided: No Sexual orientation: Straight/Heterosexual Gender identity: Female Physical Exam Vital Signs: Vital Signs: Last Vital Signs Temp 97.6 F 07/21/22 20:24 Pulse 69 07/21/22 20:24 Resp 18 07/21/22 20:24 BP 118/63 07/21/22 20:24 Pulse Ox 100 07/21/22 20:24 O2 Del Method Room Air 07/21/22 20:24 BMI result Body Mass Index 22.8 Const: Other: Appearance: Alert. Oriented X3. No acute distress. Eyes: Pupils equal, round and reactive to light. ENT: Pharynx normal. Neck: Normal inspection. Neck supple. No lymph nodes noted. No crepitus CVS: Normal heart rate and rhythm. Pulses normal. Normal S1 and S2 Respiratory: No respiratory distress. Breath sounds normal. No Wheezing. No rales Abdomen: Soft and nontender. No rigidity. No distention. Skin: Skin warm and dry. Normal skin color. Normal skin turgor. Extremities: No lower extremity edema. No Lacerations. No Rash Neuro: Oriented X 3. No motor deficit. No sensory deficit. Moving all extremities. No slurred speech. CN 2 through 12 grossly intact Psych: calm, cooperative, teary Medical Decision Making Medical Decision Making MDM Narrative: I discussed with the patient that her beta hCG level was 3. Negative is less than 2. Ultrasound did not show an intrauterine or an ectopic . Patient has no abdominal pain that would suggest an ectopic . Is possible the patient may be having an early miscarriage versus menstrual period. I discussed with the patient to return in 48 hours for blood work to check HCG. Patient will have to return on Sunday around 21:00 or she can go to the lab 1st thing in the morning. Patient was given a lab slip -patient was discharged with ectopic /spontaneous miscarriage discharge. -patient's blood type O positive, RhoGAM not indicated. Lab Data MDM Lab Attestation statement: I reviewed the patient's lab results. 07/21/22 20:39 07/21/22 20:39 Labs: Lab Results 07/21/22 07/21/22 07/21/22 Range/Units 20:39 20:39 20:39 WBC 6.7 (4.8-10.8) X10*3/uL RBC 4.36 (4.20-5.50) X10*6/uL Hgb 13.2 (12.0-16.0) g/dl Hct 38.2 (37.0-47.0) % MCV 87.6 (80.0-98.0) fL MCH 30.3 (27.0-33.0) pg MCHC 34.6 (31.0-35.0) g/dl RDW 12.0 (11.0-16.0) % Plt Count 170 (160-400) X10*3/uL MPV 12.1 (9.4-12.3) fL Immature Gran % (Auto) 0.3 (0.0-0.4) % Neut % (Auto) 64.0 (45-73) % Lymph % (Auto) 26.8 (20-40) % [place] % (Auto) 7.4 (2-11) % Eos % (Auto) 0.9 (0-4) % Baso % (Auto) 0.6 (0-2) % Lymph # (Auto) 1.8 (1.2-4.9) X10*3/uL [place] # (Auto) 0.5 (0.1-1.2) X10*3/uL Eos # (Auto) 0.1 (0.0-0.4) X10*3/uL Baso # (Auto) 0.0 (0.0-0.2) X10*3/uL Abs Immat Gran (auto) 0.02 (0.00-0.03) X10*3/uL Absolute Neuts (auto) 4.3 (2.0-8.3) x10*3/uL Absolute Nucleated RBC 0.000 (0.0-0.012) X10*3/uL Nucleated RBC % (auto) 0.0 (0.0-0.2) /100WBC Sodium 142 (135-145) mmol/L Potassium 4.0 (3.3-5.1) mmol/L Chloride 111 H (96-108) mmol/L Carbon Dioxide 24 (22-29) mmol/L Anion Gap 11 L (12-20) BUN 8 L (9-16) mg/dL Creatinine 0.62 (0.5-1.4) mg/dL Estim Creat Clear Calc 101.0 Estimated GFR > 60 Random Glucose 75 (60-115) mg/dL Calcium 8.5 (8.4-10.2) mg/dL Magnesium 2.2 (1.6-2.6) mg/dL Total Bilirubin 1.2 H (0.0-1.0) mg/dL Direct Bilirubin 0.4 (0.0-0.5) mg/dL AST 12 (5-31) U/L ALT 6 (0-31) U/L Alkaline Phosphatase 182 H (39-117) U/L Total Protein 7.0 (6.5-8.0) g/dL Albumin 4.4 (3.5-5.0) g/dL Lipase 15 (8-78) U/L Beta HCG, Quant 3 mIU/mL Urine Color Urine Appearance Urine pH (5.0-9.0) Ur Specific [place] (1.005-1.025) Urine Protein (Neg-Trace) mg/dL Urine Glucose (UA) (Negative) mg/dL Urine Ketones (Negative) mg/dL Urine Blood (Negative) Urine Nitrite (Negative) Ur Leukocyte Esterase (Negative) Urine RBC (0-2) /HPF Urine WBC (0-5) /HPF Ur Squamous Epith Cells (0-2) /HPF Urine Bacteria (None Seen) Hyaline Casts (0-2) /LPF Blood Type O Positive 07/21/22 Range/Units 20:39 WBC (4.8-10.8) X10*3/uL RBC (4.20-5.50) X10*6/uL Hgb (12.0-16.0) g/dl Hct (37.0-47.0) % MCV (80.0-98.0) fL MCH (27.0-33.0) pg MCHC (31.0-35.0) g/dl RDW (11.0-16.0) % Plt Count (160-400) X10*3/uL MPV (9.4-12.3) fL Immature Gran % (Auto) (0.0-0.4) % Neut % (Auto) (45-73) % Lymph % (Auto) (20-40) % Lares % (Auto) (2-11) % Eos % (Auto) (0-4) % Baso % (Auto) (0-2) % Lymph # (Auto) (1.2-4.9) X10*3/uL [place] # (Auto) (0.1-1.2) X10*3/uL Eos # (Auto) (0.0-0.4) X10*3/uL Baso # (Auto) (0.0-0.2) X10*3/uL Abs Immat Gran (auto) (0.00-0.03) X10*3/uL Absolute Neuts (auto) (2.0-8.3) x10*3/uL Absolute Nucleated RBC (0.0-0.012) X10*3/uL Nucleated RBC % (auto) (0.0-0.2) /100WBC Sodium (135-145) mmol/L Potassium (3.3-5.1) mmol/L Chloride (96-108) mmol/L Carbon Dioxide (22-29) mmol/L Anion Gap (12-20) BUN (9-16) mg/dL Creatinine (0.5-1.4) mg/dL Estim Creat Clear Calc Estimated GFR Random Glucose (60-115) mg/dL Calcium (8.4-10.2) mg/dL Magnesium (1.6-2.6) mg/dL Total Bilirubin (0.0-1.0) mg/dL Direct Bilirubin (0.0-0.5) mg/dL AST (5-31) U/L ALT (0-31) U/L Alkaline Phosphatase (39-117) U/L Total Protein (6.5-8.0) g/dL Albumin (3.5-5.0) g/dL Lipase (8-78) U/L Beta HCG, Quant mIU/mL Urine Color Yellow Urine Appearance Clear Urine pH 5.5 (5.0-9.0) Ur Specific [place] >= 1.030 H (1.005-1.025) Urine Protein Negative (Neg-Trace) mg/dL Urine Glucose (UA) Negative (Negative) mg/dL Urine Ketones 15 (Negative) mg/dL Urine Blood Small (1+) H (Negative) Urine Nitrite Negative (Negative) Ur Leukocyte Esterase Negative (Negative) Urine RBC 6-10 H (0-2) /HPF Urine WBC 0-5 (0-5) /HPF Ur Squamous Epith Cells 6-10 (0-2) /HPF Urine Bacteria Trace (None Seen) Hyaline Casts 0-2 (0-2) /LPF Blood Type Radiology Impression Discussion of test interpretation with radiology: I have reviewed the radiologist's reading. Radiologist Impression: FINDINGS: There is no intrauterine identified. Anteverted uterus. Thickened endometrium measuring 1.4 cm. No gestational sac. MATERNAL ADNEXA: ? ? The right maternal ovary measures 3.3 x 1.8 x 2.8 cm.? Follicles noted. No suspicious mass or lesion. The left maternal ovary measures 3.1 x 2 x 1.9 cm.? Follicles noted. No suspicious finding. There is no significant maternal adnexal mass.? No maternal pelvic ascites. US/US OB <= 14 weeks fetus IMPRESSION: There is no intrauterine identified. There is thickening of the endometrium. This appearance could simply be secondary to the early stage of . No ectopic seen. Continued follow-up recommended. Discharge Plan Discharge Clinical Impression: Possible , not confirmed Patient Disposition: Home, Self-Care Instructions: Threatened Miscarriage (ED) Additional Instructions: Please return on Sunday July 24, 2022 early in the morning for blood work. If you significant abdominal pain, cramping, worsening bleeding. Please return to the emergency room. You may report straight to the lab. Please follow-up with your primary care physician tomorrow. If you have any worsening or new symptoms, please return to the emergency room or call 911 Prescriptions: No Action ferrous sulfate 324 mg (65 mg iron) tablet,delayed release (DR/EC) 324 mg PO TID Qty: 90 3RF Rx Instructions: w vit c rich juice and diet to avoid constipation prenat.vits,fabio,[id number]-[id number]-[id number] Tablet 1 tab PO DAILY Qty: 90 3RF norethindrone (contraceptive) [Anh] 0.35 mg tablet 0.35 mg PO DAILY 30 Days Qty: 30 11RF Referrals: Ryan Pereyra MD [Physician] - 07/25/22
[2022-07-22 00:36] VITALS: BP 121/76; PULSE 76; RESP 12; O2SAT 96
--- NOTE | 2022-07-22 00:37 | PC.NURSE ---
Discharge instructions reviewed with pt. Pt verbalizes understanding.
== END 2022-07-22 00:38 | disposition home or self-care (01) ==
PROVIDERS: Physician Assistant; Emergency Provider Emergency Medicine
DX: N93.9 Abnormal uterine and vaginal bleeding, unspecified (principal); M54.50 Low back pain, unspecified; Z79.899 Other long term (current) drug therapy
CPT/HCPCS: 36415; 76801; 80048; 80076; 81001; 83690; 83735; 84702; 85025; 86900; 86901; 99283; 99284

== ENCOUNTER 2022-07-28 12:35 | Outpatient (REF) | payer MEDICAID, SELFPAY ==
[2022-07-28 12:55] LABS: Hematocrit 39.5 % (37.0-47.0); Hemoglobin 13.3 g/dl (12.0-16.0)
[2022-07-28 13:33] LABS: HCG Quantitative < 2 mIU/mL
== END 2022-07-28 12:36 | disposition home or self-care (01) ==
LOC: HO.LAB 12:35
PROVIDERS: Absent Provider Obstetrics & Gynecology; Visit Provider Emergency Medicine
DX: Z34.90 Encounter for supervision of normal pregnancy, unspecified, unspecified trimester (principal)
CPT/HCPCS: 36415; 84702; 85014; 85018

== ENCOUNTER 2022-09-14 10:55 | Outpatient (REF) | payer MEDICAID, SELFPAY ==
--- NOTE | ~2022-09-14 | US_ITS ---
EXAMINATION: US PELVIS COMPLETE CLINICAL INFORMATION: Amenorrhea COMPARISON: OB ultrasound 08/13/2020 TECHNIQUE: Transabdominal and transvaginal imaging was performed. FINDINGS: The uterus is of normal size and echogenicity measuring 7.2 x 3.6 x 4.5 cm. A regular homogeneous endometrium is identified measuring 0.6 cm. Nabothian cysts in the cervix. Both ovaries are of normal size and echogenicity. The right measures 2.7 x 2.1 x 2.2 cm for a volume of 6.4 mL. The left measures 3.0 x 2.3 x 2.0 cm for a volume of 7.3 mL. There are less than 20 follicles per ovary. There is no pelvic free fluid. US/US pelvic and transvaginal IMPRESSION: Unremarkable pelvic ultrasound.
== END 2022-09-14 10:56 | disposition home or self-care (01) ==
LOC: HO.US 10:55
PROVIDERS: Visit Provider Emergency Medicine
DX: N91.2 Amenorrhea, unspecified (principal)
CPT/HCPCS: 76830; 76856

== ENCOUNTER 2023-01-03 09:22 | Outpatient (REF) | payer MEDICAID, SELFPAY ==
[2023-01-03 18:04] LABS: CT PCR NOT DETECTED (Not Detect.); NG PCR NOT DETECTED (Not Detect.)
[2023-01-04 12:08] LABS: BV Int Neg Control Negative (Negative); BV Int Pos Control Positive (Positive)
== END 2023-01-03 09:23 | disposition home or self-care (01) ==
LOC: HO.LNP 09:22
PROVIDERS: PCP Emergency Medicine; Visit Provider Advanced Practice Midwife
DX: N92.6 Irregular menstruation, unspecified (principal); Z87.42 Personal history of other diseases of the female genital tract; Z20.2 Contact with and (suspected) exposure to infections with a predominantly sexual mode of transmission
CPT/HCPCS: 0353U; 81025; 87480; 87510; 87660; 99212

== ENCOUNTER 2023-01-03 09:22 | Outpatient (AMB) | payer MEDICAID, SELFPAY ==
--- NOTE | 2023-01-03 09:30 | MHC.OFFVIS ---
Intake Vital Signs 01/03/23 09:31 Height 5 ft 1 in Weight 117 lb BMI 22.1 BP 112/72 Intake Visit Reasons: irregular menses/DO NOT RS Intake Note: pt c/o irreg menses since miscarriage Dry Color Tester: Dry Color Tester Present (Pam) Allergies No Known Allergies [No Known Allergies*] Allergy (Verified 01/03/23 09:31) Medication List - Last Reconciled 01/03/23 by EMILY Raya.vits,fabio,moi-cvjc-otigz 1 tab PO DAILY Is last menstrual period known: Yes Last menstrual period: 12/15/22 HPI irregular menses/DO NOT RS HPI Details Patient is here because she is concerned that her periods have not been regular ever since she had a miscarriage in June. She has been trying to get ever since she had her miscarriage on July 20 and she bled afterwards from July 17 to she had no. In July she had a period August 31 to August she had some spotting in September on September 28 through the then she had a period October 09 to then in October she had some spotting on the and the and then on November 11 she started a full. On the to and then in November she bled on December 15 as of. And she is had some spotting since January 01 and and which is today. She has been tracking ovulation in her appt as well and doing ovulation predictor kits since December 25 and they have been coming up positive since December 25 the 1st the 2nd 3rd and 4th with the being highlighted as the most likely day of ovulation according to her saman. she did have sex last night in she said she so spotting this morning on her pad.. [facility] Medical History Anemia Surgical History History of Family History Mother History of hypertension History of anxiety disorder Father No problems noted. Maternal Grandmother History of diabetes mellitus, type II Hx of primary hypertension Maternal Grandfather No problems noted. Paternal Grandmother No problems noted. Social History Household Members: Significant Other and Children Alcohol intake: never Patient Tobacco Use Status: Never used Tobacco Sexual orientation: Straight/Heterosexual Gender identity: Female Female Reproductive History Menstrual Age of Menarche: 9 Duration of menses: 3-5 days Date of last menstrual period: 12/15/22 control method: none Total pregnancies: 4 Full term: 3 Number of Living Children: 3 Ab spontaneous: 1 Date of last pap smear: 01/27/21 (neg) History of abnormal pap smear: Yes (10/13 lgsil) Physical Exam Vital Signs: Last Vital Signs BP 112/72 01/03/23 09:31 BMI result Body Mass Index 22.1 Other: Absolutely no blood visible at all cervix is nonfriable. It is parous with very clear fertile type mucus abundantly present, uterus is small anteverted mobile nontender and adnexa nontender not enlarged. External Female Exam: normal external appearance Speculum Exam - Vagina: normal appearance of the vagina and normal vaginal discharge Speculum Exam - Cervix: normal appearance of the cervix Bimanual exam- vagina & uterus: normal bimanual exam, uterine size normal, consistency normal, uterine mobility normal, uterine shape normal and non-tender Bimanual Exam- Adnexa, other: normal adnexae, no masses and No adnexal tenderness Results AMB Test Urine AMB Test Urine Negative Last Edit by SHIREEN Rucker on 01/03/23 09:48 Results Reviewed Results Reviewed: Laboratory Last Values Tst Clinic Negative 01/03/23 09:47 Assessment & Plan Assessment & Plan (1) History of irregular menstrual bleeding: Comment: Review reveals fairly regular menses since miscarriage 07/20/2022, with occasional intermenstrual spotting. Code(s): Z87.42 - Personal history of other diseases of the female genital tract Plan I reviewed her menstrual history and it is possible that the spotting could be from an STD which is why she was happy to get tested but not very likely based on the exam today the patient stated that there was some spotting today however there is no visible blood seen anywhere she is sure it is coming from her vagina and not her urethra and she says it was not after having sex. She showed me a picture of a bloody pad saying it was a an example of the spotting she experienced. I could not come up with an explanation of her spotting other than it might be midcycle spotting or implantation bleeding but since she is not yet it is not likely to be the latter. I told her to continue keeping track and when she is confident about no STIs to continue with her efforts at trying to get she is already taking vitamins and is healthy. She delivered her 1st child the [facility] her 2nd 1 here at [place] and her 3rd 1 at [facility] because the birthing center was closed at that time. I told her that currently we are sending women to [facility] she liked coming here for care and would probably return for care here. We will see her hopefully when . I did discuss the normal fears of having another miscarriage after somebody has lost a and that it is normal to be very anxious about any unusual bleeding. She did voice this concern. Orders: Orders Bacterial Vaginosis Panel Today N92.6 - Irregular menstruation, unspecified, Z20.2 - Contact with and (suspected) exposure to infections with a predominantly sexual mode of transmission CT NG by PCR Today N92.6 - Irregular menstruation, unspecified, Z20.2 - Contact with and (suspected) exposure to infections with a predominantly sexual mode of transmission AMB HCG Urine Test Today N92.6 - Irregular menstruation, unspecified, Z32.02 - Encounter for test, result negative Coding Level of Care Code Est Pt Level 3 (99858) Diagnoses History of irregular menstrual bleeding Z87.42
[2023-01-03 09:31] VITALS: BP 112/72; BMI 22.1
== END 2023-01-03 10:21 | disposition home or self-care (01) ==
PROVIDERS: PCP Emergency Medicine; Visit Provider Advanced Practice Midwife
DX: Z32.02 Encounter for pregnancy test, result negative (principal); N92.6 Irregular menstruation, unspecified; Z87.42 Personal history of other diseases of the female genital tract
CPT/HCPCS: 99213

== ENCOUNTER 2023-01-03 10:20 | Outpatient (REF) | payer MEDICAID, SELFPAY | END 2023-01-03 10:21 | disposition home or self-care (01) | LOC: HO.LAB 10:20 | PROVIDERS: Visit Provider Advanced Practice Midwife | DX: Z13.89 Encounter for screening for other disorder (principal) ==

== ENCOUNTER 2023-03-08 17:40 | Outpatient (REF) | payer MEDICAID, SELFPAY ==
[2023-03-10 20:18] LABS: C. trachomatis RNA TMA NOT DETECTED (NOT DETECTED); N. gonorrhoeae RNA TMA NOT DETECTED (NOT DETECTED)
== END 2023-03-08 17:41 | disposition home or self-care (01) ==
LOC: HO.LNP 17:40
PROVIDERS: Visit Provider Internal Medicine
DX: N89.8 Other specified noninflammatory disorders of vagina (principal); R30.0 Dysuria
CPT/HCPCS: 81513; 87086; 87088; 87186; 87491; 87591

== ENCOUNTER 2023-11-26 09:15 | Emergency (ER) | payer MEDICAID, SELFPAY ==
--- NOTE | ~2023-11-26 | US_ITS ---
EXAMINATION: US OBSTETRICAL ULTRASOUND CLINICAL INFORMATION: Question of ectopic COMPARISON: Pelvic ultrasound 09/14/2022 LMP: 10/27/2023. Gestational age by maternal dates is 4 weeks 2 days. Estimated date of delivery by maternal dates is 08/02/2024. TECHNIQUE: Both transabdominal endovaginal scanning was performed. FINDINGS: Uterus appears unremarkable. A gestational sac is not seen. The endometrium is thickened at 1.6 cm. Nabothian cysts are present in the cervix. The left ovary is not seen. Right ovary measures 4.8 x 3.1 x 3.2 cm and contains a 2.0 x 1.8 x 2.0 cm cyst. Some free fluid is present in right adnexa. US/US OB pelvic and transvaginal IMPRESSION: A gestational sac is seen. Correlation with beta hCG levels is recommended, as nonvisualization of a gestational sac could be due to a very early stage of . Alternatively, lack of gestational sac and pole may also be seen with missed or ectopic . There is a right ovarian cysts and some free fluid in the adnexa but no pole is seen in this area to strongly suggest ectopic . Short-term sonographic follow-up and serial beta hCG levels are recommended to assess for development of a an intrauterine
[2023-11-26 09:17] VITALS: BP 136/93; PULSE 86; RESP 16; TEMP 36.7; O2SAT 98; BMI 20.5
[2023-11-26 09:33] LABS: MANUAL DIFF FLAG NO
[2023-11-26 09:35] LABS: Basophils Percent Auto 0.5 % (0-2); Eosinophils Absolute Auto 0.1 X10*3/uL (0.0-0.4); Eosinophils Percent Auto 1.2 % (0-4); Hematocrit 39.3 % (37.0-47.0); Hemoglobin 13.8 g/dl (12.0-16.0); Imm Gran Abs Auto 0.02 X10*3/uL (0.00-0.03); Imm Gran Pct Auto 0.3 % (0.0-0.4); Lymphocytes Absolute Auto 1.5 X10*3/uL (1.2-4.9); Lymphocytes Percent Auto 24.8 % (20-40); Mean Corpuscular HGB Conc 35.1 g/dl (31.0-35.0); Mean Corpuscular Hemoglobin 31.1 pg (27.0-33.0); Mean Corpuscular Volume 88.5 fL (80.0-98.0); Mean Platelet Volume 12.1 fL (9.4-12.3); Monocytes Absolute Auto 0.4 X10*3/uL (0.1-1.2); Monocytes Percent Auto 7.5 % (2-11); Neutrophils Absolute Auto 3.9 x10*3/uL (2.0-8.3); Neutrophils Percent Auto 65.7 % (45-73); Platelet Count 160 X10*3/uL (160-400); Red Blood Count 4.44 X10*6/uL (4.20-5.50); Red Cell Distribution Width 12.4 % (11.0-16.0); White Blood Count 5.9 X10*3/uL (4.8-10.8)
--- NOTE | 2023-11-26 09:56 | ED_ITS ---
HPI - General Chief complaint: Vaginal Bleeding Stated complaint: ? Miscarriage Time Seen by Provider: 11/26/23 09:49 Source: patient Mode of arrival: ambulatory Limitations: no limitations History of Present Illness HPI Narrative: This is a 28 years old female presented to the emergency department with a chief complaint of vaginal spotting. She states that she is she did a home test. She is AB1 Complaint: vaginal bleeding Onset (ago): day(s) (1) Pain Consistency: constant Severity: mild Quality: Cramping Radiation: pelvis Relieving factors: none Related Data Previous Rx's ?Medication ?Instructions ?Recorded prenat.vits,fabio,usi-[id number]-fwpxh 1 tab PO DAILY #90 tabs 05/19/20 Allergies Allergy/AdvReac Type Severity Reaction Status Date / Time No Known Allergies Allergy Verified 11/26/23 09:21 [No Known Allergies*] Review of Systems 2 Constitutional: Constitutional: Reports no additional constitutional complaints Eyes: Eyes: Reports no additional eye complaints Cardiovascular: Cardiovascular: Reports no additional cardiovascular complaints REPLACED BY [facility] Past Medical History Attestation statement: The following information was validated with the patient. REPLACED BY [facility] Narrative: Denies any major medical Medical History Anemia Surgical History History of Family History Family History Mother History of hypertension History of anxiety disorder Father No problems noted. Maternal Grandmother History of diabetes mellitus, type II Hx of primary hypertension Maternal Grandfather No problems noted. Paternal Grandmother No problems noted. Social History Social History Household Members: Significant Other and Children Alcohol intake: never Patient Tobacco Use Status: Never used Tobacco Smoked in Last 30 Days: No Use of substances other than those prescribed or required for medical reasons: No Advance Directives: No Advance Directives Information Provided: Yes Sexual orientation: Straight/Heterosexual Gender identity: Female Physical Exam 2 Vital Signs: Vital Signs: Last Vital Signs Temp 98.5 F 11/26/23 13:57 Pulse 60 11/26/23 13:57 Resp 16 11/26/23 13:57 BP 100/54 L 11/26/23 13:57 Pulse Ox 99 11/26/23 13:57 O2 Del Method Room Air 11/26/23 13:57 BMI result Body Mass Index 20.5 She looks well she is nontoxic she comfortable in the Const: General: cooperative Nutritional Appearance: well nourished O rientation/consciousness: oriented to person and patient oriented x3 L imitations: no limitations HEENT: Head: Yes normal to inspection General nose exam: Normal external nose present Face and sinus: Yes normal facial exam Mouth: Normal oral and palatal mucosa present Neck: Neck: Yes normal visual inspection Chest: Chest palpation & inspection: normal inspection of the chest Resp: Effort & Inspection: normal respiratory effort Cardio: Jugular venous distension: no JVD Rate: regular rate Rhythm: r egular rhythm GI: Inspection: Yes normal to inspection Palpation (GI): Soft to palpation, not firm and nontender Auscultation: normal bowel sounds Skin: General skin exam: no rashes or lesions noted Lesions: no lesions Rashes: no rashes Trauma: no lacerations or abrasions Neuro: General: oriented to person and patient oriented x3 Course Course Course Narrative: Patient went ultrasound no gestational sac this could be because early versus miscarriage versus ectopic. Patient will be discharged she has a soft abdomen she has no abdominal pain she will follow-up with OBGYN, aectopic precautions was given to the patient ,she is Rh positive Reevaluation(s) Reevaluation #1: US showed not gestation sac ? early vs misscarriage Time: 14:36 Medical Decision Making Medical Decision Making [facility] Narrative: Patient presented with vaginal bleeding she states she is looking through the records she is Rh positive, will confirm via quant is pos get US Differential Diagnosis Differential Diagnoses: The differential diagnosis associated with the presentation includes Ectopic /miscarriage Admission/Observation Consideration of admission/observation: Escalation of care including admission/observation considered Lab Data [facility] Lab Attestation statement: I reviewed the patient's lab results. 11/26/23 09:29 11/26/23 09:29 Labs: Lab Results 11/26/23 11/26/23 Range/Units 09:29 Unknown WBC 5.9 (4.8-10.8) X10*3/uL RBC 4.44 (4.20-5.50) X10*6/uL Hgb 13.8 (12.0-16.0) g/dl Hct 39.3 (37.0-47.0) % MCV 88.5 (80.0-98.0) fL MCH 31.1 (27.0-33.0) pg MCHC 35.1 H (31.0-35.0) g/dl RDW 12.4 (11.0-16.0) % Plt Count 160 (160-400) X10*3/uL MPV 12.1 (9.4-12.3) fL Immature Gran % (Auto) 0.3 (0.0-0.4) % Neut % (Auto) 65.7 (45-73) % Lymph % (Auto) 24.8 (20-40) % [place] % (Auto) 7.5 (2-11) % Eos % (Auto) 1.2 (0-4) % Baso % (Auto) 0.5 (0-2) % Lymph # (Auto) 1.5 (1.2-4.9) X10*3/uL [place] # (Auto) 0.4 (0.1-1.2) X10*3/uL Eos # (Auto) 0.1 (0.0-0.4) X10*3/uL Baso # (Auto) 0.0 (0.0-0.2) X10*3/uL Abs Immat Gran (auto) 0.02 (0.00-0.03) X10*3/uL Absolute Neuts (auto) 3.9 (2.0-8.3) x10*3/uL Absolute Nucleated RBC 0.000 (0.0-0.012) X10*3/uL Nucleated RBC % (auto) 0.0 (0.0-0.2) /100WBC Sodium 138 (135-145) mmol/L Potassium 3.7 (3.3-5.1) mmol/L Chloride 108 (96-108) mmol/L Carbon Dioxide 22 (22-29) mmol/L Anion Gap 12 (12-20) BUN 12 (9-16) mg/dL Creatinine 0.73 (0.5-1.4) mg/dL Estim Creat Clear Calc 93.2 Estimated GFR > 60 Random Glucose 95 (60-115) mg/dL Calcium 9.2 D (8.4-10.2) mg/dL Beta HCG, Quant 164 mIU/mL Urine Color Yellow Urine Appearance Clear Urine pH 5.5 (5.0-9.0) Ur Specific [place] >= 1.030 H (1.005-1.025) Urine Protein Negative (Neg-Trace) mg/dL Urine Glucose (UA) Negative (Negative) mg/dL Urine Ketones Trace (Negative) mg/dL Urine Blood Small (1+) H (Negative) Urine Nitrite Negative (Negative) Ur Leukocyte Esterase Negative (Negative) Urine RBC 0-2 (0-2) /HPF Urine WBC 0-5 (0-5) /HPF Ur Squamous Epith Cells 11-20 (0-2) /HPF Urine Bacteria 1+ (None Seen) Hyaline Casts 0-2 (0-2) /LPF Independent Interpretation I performed an independent interpretation of an: Ultrasound Radiology Impression Discussion of test interpretation with radiology: I discussed test interpretation with the radiologist and I have reviewed the radiologist's reading. Discharge Plan Discharge Clinical Impression: Threatened Patient Disposition: Home, Self-Care Instructions: Threatened Miscarriage (ED) Additional Instructions: Follow-up with OB, you will need your hormone of the (hCG) recheck today level was 164 At this time we can not tell you 100 % if it was a miscarriage versus very early , repeating the hormone level will clarify Prescriptions: No Action prenat.vits,fabio,ycc-khun-vmpkk Tablet 1 tab PO DAILY Qty: 90 3RF Referrals: Ryan Pereyra MD [Physician] - 2 days Stand Alone Forms: Work/School Release Print Language: Mosotho
[2023-11-26 09:57] LABS: Anion Gap 12 (12-20); Blood Urea Nitrogen 12 mg/dL (9-16); Calcium 9.2 mg/dL (8.4-10.2); Carbon Dioxide 22 mmol/L (22-29); Chloride 108 mmol/L (96-108); Creatinine Clr Calc Pharmacy 93.2; Estimated Glomerular Filt Rate > 60; Glucose Random 95 mg/dL (60-115); Potassium 3.7 mmol/L (3.3-5.1); Sodium 138 mmol/L (135-145)
[2023-11-26 10:01] LABS: HCG Quantitative 164 mIU/mL
[2023-11-26 10:19] VITALS: BP 107/66; PULSE 84; RESP 18; TEMP 36.9; O2SAT 100
[2023-11-26 10:24] LABS: Appearance Urine Clear; Color Urine Yellow; Glucose Urine UA Negative (Negative); Leukocyte Esterase Urine Negative (Negative); Nitrite Urine Negative (Negative); PH 5.5 (5.0-9.0); Specific Gravity - Urine >= 1.030 (1.005-1.025); UMIC TRIGGER UACC YES; Urine Blood Small (1+) (Negative); Urine Ketones Trace mg/dL (Negative); Urine Protein Negative (Neg-Trace)
--- NOTE | 2023-11-26 10:38 | PC.NURSE ---
Pt reports positive test this past Sunday. Reports since then she has had lower ABD and lower back cramping with spotting of brown blood. Pt worried due to this presenting like her last miscarriage last year. Pt does have 3 alive children. Denies vomiting/ diarrhea, LOC, fevers, cough. Denies heavy bleeding, describes as a spotting. Alert and oriented, breathing even and unlabored.
[2023-11-26 11:14] LABS: Bacteria Urine 1+ (None Seen); Hyaline Casts Urine 0-2 /LPF (0-2); RBC Urine 0-2 /HPF (0-2); WBC Urine 0-5 /HPF (0-5)
[2023-11-26 12:01] VITALS: BP 101/60; PULSE 62; RESP 16; TEMP 36.9; O2SAT 98
[2023-11-26 13:57] VITALS: BP 100/54; PULSE 60; RESP 16; TEMP 36.9; O2SAT 99
[2023-11-26 14:46] VITALS: BP 100/54; PULSE 60; RESP 16; TEMP 36.9; O2SAT 99
== END 2023-11-26 14:47 | disposition home or self-care (01) ==
PROVIDERS: Emergency Provider Emergency Medicine
DX: O20.0 Threatened abortion (principal); R25.2 Cramp and spasm; Z3A.01 Less than 8 weeks gestation of pregnancy
CPT/HCPCS: 36415; 76801; 76817; 80048; 81001; 81003; 84702; 85025; 99284

== ENCOUNTER 2023-11-28 08:06 | Outpatient (REF) | payer MEDICAID, SELFPAY ==
[2023-11-28 08:44] LABS: HCG Quantitative 362 mIU/mL
[2023-11-29 05:05] LABS: CT PCR NOT DETECTED (Not Detect.); NG PCR NOT DETECTED (Not Detect.)
== END 2023-11-28 08:07 | disposition home or self-care (01) ==
LOC: HO.LAB 08:06
PROVIDERS: Visit Provider Obstetrics & Gynecology
DX: N92.0 Excessive and frequent menstruation with regular cycle (principal); O26.851 Spotting complicating pregnancy, first trimester
CPT/HCPCS: 36415; 84702; 87491; 87591; 99212

== ENCOUNTER 2023-11-28 08:20 | Outpatient (AMB) | payer MEDICAID, SELFPAY ==
--- NOTE | 2023-11-28 08:22 | MHC.OFFVIS ---
Vital Signs 11/28/23 08:23 BP 98/60 Intake Visit Reasons: HCG Allergies No Known Allergies [No Known Allergies*] Allergy (Verified 11/26/23 09:21) HPI Comments Details: Presenting 2 days after ED follow-up for vaginal spotting. In the emergency room H&H within normal hCG 168 and pelvic ultrasound showed the following: A gestational sac is NOT seen. Correlation with beta hCG levels is recommended, as nonvisualization of a gestational sac could be due to a very early stage of . Alternatively, lack of gestational sac and pole may also be seen with missed or ectopic . There is a right ovarian cysts and some free fluid in the adnexa but no pole is seen in this area to strongly suggest ectopic . Short-term sonographic follow-up and serial beta hCG levels are recommended to assess for development of a an intrauterine Blood type O positive HCG done today is 362 The patient is doing well with no complaints no pelvic pain and or clamping and minimal vaginal spotting on and off [facility] Medical History Anemia Surgical History History of Family History Mother History of hypertension History of anxiety disorder Father No problems noted. Maternal Grandmother History of diabetes mellitus, type II Hx of primary hypertension Maternal Grandfather No problems noted. Paternal Grandmother No problems noted. Social History Household Members: Significant Other and Children Alcohol intake: never Patient Tobacco Use Status: Never used Tobacco Sexual orientation: Straight/Heterosexual Gender identity: Female Female Reproductive History Menstrual Age of Menarche: 9 Review of Systems Const All systems reviewed & are unremarkable except as noted in HPI and below Physical Exam GI Palpation (GI): Soft to palpation and nontender General: Yes no CVA tenderness External Female Exam: normal external appearance and normal appearance of the urethra Speculum Exam - Vagina: normal appearance of the vagina, normal palpation, no lesions and no masses Speculum Exam - Cervix: normal appearance of the cervix, normal palpation, no lesions, no masses, nontender and Other cervical findings present (Closed cervix, no evidence of vaginal bleeding) Bimanual exam- vagina & uterus: normal bimanual exam, normal palpation, uterine size normal, normal palpation, uterine shape normal, No Cervical tenderness present and non-tender Bimanual Exam- Adnexa, other: normal adnexae Back/Spine/Pelvis Back: no CVA tenderness Assessment & Plan Assessment & Plan (1) Spotting in first trimester: Code(s): O26.851 - Spotting complicating , first trimester Category: Medical Plan: Discussed with the patient hCG level increased from 168 to 362 in 48 hours. Possible causes of spotting discussed with the patient including but not limited to SAB, normal early intrauterine gestation or ectopic . Recommended hCG quantitative to be repeated every 48 hours. Signs and symptoms of ectopic and/ or SAB were given to the patient, Instructions given the patient to call or go to emergency room in case of vaginal bleeding and /or pelvic pain. And to schedule a follow-up appointment in the office on 12/03 vitamin 1 tablet p.o. q.d. Orders: Orders HCG Quantitative Today N92.0 - Excessive and frequent menstruation with regular cycle HCG Quantitative 12/02/23 O26.851 - Spotting complicating , first trimester HCG Quantitative 12/04/23 O26.851 - Spotting complicating , first trimester CT NG by PCR Today N92.0 - Excessive and frequent menstruation with regular cycle HCG Quantitative 11/30/23 O26.851 - Spotting complicating , first trimester HCG Quantitative 12/06/23 O26.851 - Spotting complicating , first trimester Coding Level of Care Code Est Pt Level 3 (65337) Diagnoses Spotting in first trimester O26.851
[2023-11-28 08:23] VITALS: BP 98/60
== END 2023-11-28 09:50 | disposition home or self-care (01) ==
LOC: HO.HWS 08:20
PROVIDERS: PCP Emergency Medicine; Referring Provider Emergency Medicine; Visit Provider Obstetrics & Gynecology
DX: O26.851 Spotting complicating pregnancy, first trimester (principal)
CPT/HCPCS: 99213

== ENCOUNTER 2023-11-28 08:31 | Outpatient (REF) | payer MEDICAID, SELFPAY | END 2023-11-28 08:32 | disposition home or self-care (01) | LOC: HO.LNP 08:31 | PROVIDERS: Visit Provider Obstetrics & Gynecology | DX: Z13.89 Encounter for screening for other disorder (principal) ==

== ENCOUNTER 2023-11-30 09:06 | Outpatient (REF) | payer MEDICAID, SELFPAY ==
[2023-11-30 09:56] LABS: HCG Quantitative 773 mIU/mL
== END 2023-11-30 09:07 | disposition home or self-care (01) ==
LOC: HO.LAB 09:06
PROVIDERS: Visit Provider Obstetrics & Gynecology
DX: O26.851 Spotting complicating pregnancy, first trimester (principal)
CPT/HCPCS: 36415; 84702

== ENCOUNTER 2023-12-04 08:22 | Outpatient (REF) | payer MEDICAID, SELFPAY ==
--- NOTE | ~2023-12-04 | US_ITS ---
EXAMINATION: US OBSTETRICAL ULTRASOUND CLINICAL INFORMATION: Encounter for supervision of normal COMPARISON: 11/26/2023 LMP: 10/27/2023. Gestational age by maternal dates is 5 weeks 3 days. Estimated date of delivery by maternal dates is 08/02/2024. TECHNIQUE: Both transabdominal and endovaginal scanning was performed FINDINGS: A gestational sac is seen in the endometrial canal measuring 6.4 x 3.8 x 6.7 mm with a mean diameter of 5.6 mm. This corresponds to a gestational age of 5 weeks 1 day. No pole is seen. A yolk sac is identified. MATERNAL ADNEXA: The right maternal ovary measures 4.1 x 3.2 x 3.1 cm. A 2.9 cm corpus luteal cyst is present The left maternal ovary measures 2.2 x 1.5 x 1.5 cm. There is no significant maternal adnexal mass. No maternal pelvic ascites. US/US OB pelvic and transvaginal IMPRESSION: A gestational sac is present without a pole. Correlation with beta hCG levels is recommended, as nonvisualization of a pole could be due to an early stage of . Alternatively, lack of pole may also be seen with missed or ectopic , although no adnexal mass is seen to strongly suggest ectopic . Continued short-term sonographic follow-up and serial beta hCG levels are recommended to assess for development of a pole.
[2023-12-04 09:08] LABS: HCG Quantitative 3148 mIU/mL
== END 2023-12-04 08:23 | disposition home or self-care (01) ==
LOC: HO.LAB 08:22
PROVIDERS: Visit Provider Obstetrics & Gynecology
DX: Z34.91 Encounter for supervision of normal pregnancy, unspecified, first trimester (principal); Z3A.00 Weeks of gestation of pregnancy not specified; R07.9 Chest pain, unspecified
CPT/HCPCS: 36415; 76801; 76817; 84702; 99212

== ENCOUNTER 2023-12-04 09:05 | Outpatient (AMB) | payer MEDICAID, SELFPAY ==
--- NOTE | 2023-12-04 09:07 | A.OFFVIS_ITS ---
Vital Signs 12/04/23 11:27 Height 5 ft 1 in Weight 118 lb BMI 22.3 Intake Visit Reasons: HCG follow up Allergies No Known Allergies [No Known Allergies*] Allergy (Verified 11/26/23 09:21) HPI Comments Details: Presenting for follow-up doing well with no pelvic cramping and or vaginal spotting or bleeding, complaining of chest pain no shortness of breath or any other symptoms. On vitamin. HCG on 11/29 was 773 on 12/03 today was 3148. Pelvic ultrasound done today no official report yet but unofficial reading showed a 5 weeks and 1 day of gestation gestational sac with yolk sac no pole , co measured with 5 weeks and 1 day of gestation, EDC 08/04/24 [facility] Medical History Anemia Surgical History History of Family History Mother History of hypertension History of anxiety disorder Father No problems noted. Maternal Grandmother History of diabetes mellitus, type II Hx of primary hypertension Maternal Grandfather No problems noted. Paternal Grandmother No problems noted. Social History Household Members: Significant Other and Children Alcohol intake: never Patient Tobacco Use Status: Never used Tobacco Sexual orientation: Straight/Heterosexual Gender identity: Female Female Reproductive History Menstrual Age of Menarche: 9 Review of Systems Const All systems reviewed & are unremarkable except as noted in HPI and below Reports as per HPI and Reports no additional complaints GI Reports no additional complaints Reports no additional complaints Physical Exam Vital Signs: BMI result Body Mass Index 22.3 Assessment & Plan Assessment & Plan (1) Early stage of : Code(s): Z34.90 - Encounter for supervision of normal , unspecified, unspecified trimester Category: Medical Plan: Discussed with the patient the results of hCG and the ultrasound, will check the official report of the ultrasound and will order a repeat ultrasound to confirm viability in 2 weeks. SAB warnings given the patient she is to go to emergency room or call in case of pelvic cramping and or bleeding. vitamin 1 tablet p.o. q.d. instructions given the patient to schedule an ultrasound and a 2 week ultrasound follow-up appointment. All questions answered, the patient verbalized understanding (2) Chest pain: Code(s): R07.9 - Chest pain, unspecified Category: Medical Plan: Instructed the patient to go to emergency room immediately for evaluation of chest pain. All questions answered, the patient verbalized understanding especially the urgency of her clinical situation and agreed with the plan. Orders: Orders US OB <= 14 weeks fetus 2 Weeks Z34.90 - Encounter for supervision of normal , unspecified, unspecified trimester Coding Level of Care Code Est Pt Level 3 (42912) Diagnoses Early stage of Z34.90 Chest pain R07.9
[2023-12-04 11:27] VITALS: BMI 22.3
== END 2023-12-04 11:58 | disposition home or self-care (01) ==
PROVIDERS: Referring Provider Emergency Medicine; Visit Provider Obstetrics & Gynecology
DX: Z34.90 Encounter for supervision of normal pregnancy, unspecified, unspecified trimester (principal); R07.9 Chest pain, unspecified
CPT/HCPCS: 99213

== ENCOUNTER 2023-12-06 07:27 | Outpatient (REF) | payer MEDICAID, SELFPAY ==
--- NOTE | ~2023-12-06 | US_ITS ---
EXAMINATION: US OBSTETRICAL ULTRASOUND CLINICAL INFORMATION: Follow up dates/viability. COMPARISON: 12/04/2023. LMP: 10/27/2023. Gestational age by maternal dates is 5 weeks 5 days. Estimated date of delivery by maternal dates is 08/02/2024. TECHNIQUE: Both transabdominal and endovaginal scanning was performed. FINDINGS: Again seen is a gestational sac with a small yolk sac seen but no definite pole seen. There is one small area measuring 1.3 mm which could represent a pole but no cardiac activity is seen. A small area of subchorionic hemorrhage is seen on the left. MATERNAL ADNEXA: The right maternal ovary measures 3.9 x 3.1 x 3.2 cm, which includes a 2.6 x 2.2 x 2.6 cm cyst. The left maternal ovary measures 3.0 x 1.5 x 1.7 cm and appears unremarkable. There is no significant maternal adnexal mass. No maternal pelvic ascites. US/US OB pelvic and transvaginal IMPRESSION: A gestational sac is present along with a yolk sac, which was seen on the study 2 days ago as well. There is a small linear area of tissue identified, which could represent a pole but no cardiac activity is seen at this point. New small area of subchorionic hemorrhage seen. Recommend continued ultrasound follow up and correlation with hCG.
[2023-12-06 08:04] LABS: HCG Quantitative 7115 mIU/mL
== END 2023-12-06 07:28 | disposition home or self-care (01) ==
LOC: HO.LAB 07:27
PROVIDERS: Visit Provider Obstetrics & Gynecology
DX: Z34.91 Encounter for supervision of normal pregnancy, unspecified, first trimester (principal)
CPT/HCPCS: 36415; 76801; 76817; 84702; 99212

== ENCOUNTER 2023-12-06 08:15 | Outpatient (AMB) | payer MEDICAID, SELFPAY ==
[2023-12-06 09:26] VITALS: BP 102/66; BMI 22.1
--- NOTE | 2023-12-06 09:26 | MHC.OFFVIS ---
Vital Signs 12/06/23 09:26 Height 5 ft 1 in Weight 116 lb 13.52 oz BMI 22.1 BP 102/66 Intake Visit Reasons: HCG follow up Kitchen Aide Required: No Information Interpreted: non-clinical & clinical Accompanied by: Self / Same As Patient Allergies No Known Allergies [No Known Allergies*] Allergy (Verified 12/06/23 09:28) Patient : Yes HPI Comments Details: Presenting for hCG and ultrasound follow-up doing well with no complaints no vaginal bleeding pelvic pain or cramping or any other concerns. On vitamin 1 tablet p.o. q.d. hCG went up from 3148 to 7115 last 48 hours. Pelvic ultrasound done today showed the following: IMPRESSION: A gestational sac is present along with a yolk sac, which was seen on the study 2 days ago as well. There is a small linear area of tissue identified, which could represent a pole but no cardiac activity is seen at this point. New small area of subchorionic hemorrhage seen. Recommend continued ultrasound follow up and correlation with hCG. [facility] Medical History Anemia Surgical History History of Family History Mother History of hypertension History of anxiety disorder Father No problems noted. Maternal Grandmother History of diabetes mellitus, type II Hx of primary hypertension Maternal Grandfather No problems noted. Paternal Grandmother No problems noted. Social History Household Members: Significant Other and Children Alcohol intake: never Patient Tobacco Use Status: Never used Tobacco Sexual orientation: Straight/Heterosexual Gender identity: Female Female Reproductive History Menstrual Age of Menarche: 9 Review of Systems Const All systems reviewed & are unremarkable except as noted in HPI and below Reports as per HPI and Reports no additional complaints GI Reports no additional complaints Reports no additional complaints Physical Exam Vital Signs: Last Vital Signs BP 102/66 12/06/23 09:26 BMI result Body Mass Index 22.1 Assessment & Plan Assessment & Plan (1) Early stage of : Code(s): Z34.90 - Encounter for supervision of normal , unspecified, unspecified trimester Category: Medical Plan: Discussed with the patient the findings on ultrasound. SAB warnings given the patient, she is to call or go to emergency room in case of vaginal bleeding and or cramping or pain. vitamin tablet p.o. q.d.. Repeat Ultrasound schedule on 12/16. Instructions given to the patient to schedule a follow-up appointment afterwards. All questions answered, the patient verbalized understanding Coding Level of Care Code Est Pt Level 3 (80138) Diagnoses Early stage of Z34.90
== END 2023-12-06 12:33 | disposition home or self-care (01) ==
LOC: HO.HWS 08:15
PROVIDERS: Visit Provider Obstetrics & Gynecology
DX: Z34.90 Encounter for supervision of normal pregnancy, unspecified, unspecified trimester (principal)
CPT/HCPCS: 99213

== ENCOUNTER 2023-12-17 11:27 | Outpatient (REF) | payer MEDICAID, SELFPAY ==
--- NOTE | ~2023-12-17 | US_ITS ---
EXAMINATION: US OBSTETRICAL ULTRASOUND CLINICAL INFORMATION: Encountered abnormal COMPARISON: OB ultrasound 12/06/2023 LMP: 10/27/2023. Gestational age by maternal dates is 7 weeks and 2 days. Estimated date of delivery by maternal dates is 08/04/2024. TECHNIQUE: Ultrasound of the maternal pelvis is performed using transabdominal transducer. M-mode Doppler is also performed. FINDINGS: There is a single intrauterine gestational sac with visible yolk sac, embryo/fetus, and cardiac activity. There is no significant subchorionic hemorrhage or hematoma. HR: 144 beats per minute. CRL (crown rump length): 0.9 cm (7 weeks and 0 days +/- 4 days). JOB (estimated date of delivery): 08/02/2024 +/- 4 days. MATERNAL ADNEXA: The right maternal ovary measures 3.7 x 2.6 x 3.0 cm. Incidentally noted physiologic corpus luteum. The left maternal ovary measures 2.1 x 1.6 x 1.4 cm. There is no significant maternal adnexal mass. Trace simple free fluid. US/US OB <= 14 weeks fetus IMPRESSION: 1. Single living intrauterine gestation with ultrasound gestational age of 7 weeks and 0 days +/- 4 days. 2. Estimated date of delivery is 08/02/2024 +/- 4 days. 3. Trace simple pelvic free fluid which may be within physiologic limits of volume. Electronically signed by: Emeli Marcos MD 12/21/2023 04:23 PM EDT
== END 2023-12-17 11:28 | disposition home or self-care (01) ==
LOC: HO.US 11:27
PROVIDERS: Visit Provider Obstetrics & Gynecology
DX: Z34.91 Encounter for supervision of normal pregnancy, unspecified, first trimester (principal); Z3A.01 Less than 8 weeks gestation of pregnancy
CPT/HCPCS: 76801; 99212

== ENCOUNTER 2023-12-17 12:20 | Outpatient (AMB) | payer MEDICAID, SELFPAY ==
[2023-12-17 13:08] VITALS: BMI 22.1
--- NOTE | 2023-12-17 13:08 | A.OFFVIS_ITS ---
Vital Signs 12/17/23 13:08 Height 5 ft 1 in Weight 116 lb 13.52 oz BMI 22.1 Intake Visit Reasons: US FOLLOW UP/PER [employer] Inspector Required: No Information Interpreted: non-clinical & clinical Allergies No Known Allergies [No Known Allergies*] Allergy (Verified 12/06/23 09:28) HPI Comments Details: Presenting for ultrasound follow-up doing well with no complaints. No pelvic pain and or bleeding. On vitamin. ultrasound done today, report is not available. Unofficial reading showed the following intrauterine gestation positive heart rate at 7 weeks of gestation EDC 08/03/2027 [facility] Medical History Anemia Surgical History History of Family History Mother History of hypertension History of anxiety disorder Father No problems noted. Maternal Grandmother History of diabetes mellitus, type II Hx of primary hypertension Maternal Grandfather No problems noted. Paternal Grandmother No problems noted. Social History Household Members: Significant Other and Children Alcohol intake: never Patient Tobacco Use Status: Never used Tobacco Sexual orientation: Straight/Heterosexual Gender identity: Female Female Reproductive History Menstrual Age of Menarche: 9 Review of Systems Const All systems reviewed & are unremarkable except as noted in HPI and below Reports as per HPI and Reports no additional complaints GI Reports no additional complaints Reports no additional complaints Physical Exam Vital Signs: BMI result Body Mass Index 22.1 Assessment & Plan Assessment & Plan (1) Early stage of : Code(s): Z34.90 - Encounter for supervision of normal , unspecified, unspecified trimester Category: Medical Plan: Discussed with the patient the finding on ultrasound, will check the official report reading. SAB warnings given the patient, she is to call or go to emergency room in case of pelvic pain and or bleeding. vitamin 1 tablet p.o. q.d.. Instructed the patient to schedule a the appointment as soon as possible to initiate care. All questions answered, the patient verbalized understanding. Coding Level of Care Code Est Pt Level 3 (14836) Diagnoses Early stage of Z34.90
== END 2023-12-17 15:17 | disposition home or self-care (01) ==
LOC: HO.HWS 12:20
PROVIDERS: Visit Provider Obstetrics & Gynecology
DX: Z34.90 Encounter for supervision of normal pregnancy, unspecified, unspecified trimester (principal)
CPT/HCPCS: 99213